=== PATIENT | female | born 1965 | race Caucasian/White ===

== ENCOUNTER 2017-04-02 11:36 | Emergency (ER) | payer OTHER ==
[2017-04-02] MEDS ORDERED: LISINOPRIL 10 MG TABLET PO ONE (11:54)
--- NOTE | 2017-04-02 11:54 | ER Document Report ---
ED Blood Pressure Problem - General Chief Complaint: Blood Pressure Problem Stated Complaint: BLOOD PRESSURE ISSUE Time Seen by Provider: 04/02/17 11:42 Mode of Arrival: Ambulatory Information source: Patient TRAVEL OUTSIDE OF THE [place] IN LAST 30 DAYS: No - HPI Patient complains to provider of: High blood pressure Onset: This morning Quality of pain: Achy Severity: Mild Pain Level: 2 Problem is: Chronic problem Associated symptoms: Headache Notes: Patient is a 52-year-old female with a history of hypertension who is noncompliant with her medications, presenting to the emergency room today complaining of mild headache, she was in a group therapy session this morning and was crying when another person there noted that her tear was red and it appeared as though she had blood coming from her left eye, she does report a burning sensation to the medial portion of her left eye but denies any injury, no other discharge, no blurry vision, no nausea or vomiting, she does report a history of headaches frequently - Related Data Allergies/Adverse Reactions: sulfamethoxazole [From Bactrim] Allergy (Intermediate, Verified 04/02/17 11:41) hives, white tounge, trimethoprim [From Bactrim] Allergy (Intermediate, Verified 04/02/17 11:41) hives, white tounge, bandaids Allergy (Mild, Uncoded 04/02/17 11:41) redness Past Medical History - General Information source: Patient - Social History Smoking Status: Never Smoker Chew tobacco use (# tins/day): No Frequency of alcohol use: None Drug Abuse: None Family History: Reviewed & Not Pertinent - Past Medical History Cardiac Medical History: Reports: Hx Hypertension Denies: Hx Coronary Artery Disease, Hx Heart Attack Pulmonary Medical History: Reports: Hx Asthma, Hx Bronchitis, Hx Pneumonia Denies: Hx COPD Neurological Medical History: Denies: Hx Cerebrovascular Accident, Hx Seizures Renal/ Medical History: Denies: Hx Peritoneal Dialysis Musculoskeltal Medical History: Reports Hx Arthritis Past Surgical History: Reports: Hx Cholecystectomy, Hx Hysterectomy, Hx Oral Surgery - wisdom teeth, Hx Tonsillectomy, Hx Tubal Ligation. Denies: Hx Pacemaker - Immunizations Hx Diphtheria, Pertussis, Tetanus Vaccination: Yes Review of Systems - Review of Systems Constitutional: No symptoms reported EENT: See HPI Cardiovascular: No symptoms reported Respiratory: No symptoms reported Gastrointestinal: No symptoms reported Genitourinary: No symptoms reported Female Genitourinary: No symptoms reported Musculoskeletal: No symptoms reported Skin: No symptoms reported Hematologic/Lymphatic: No symptoms reported Neurological/Psychological: Headaches -: Yes All other systems reviewed and negative Physical Exam - Vital signs Vitals: Temp Pulse Resp BP Pulse Ox 98.2 F 76 18 148/94 H 97 04/02/17 11:39 04/02/17 11:39 04/02/17 11:39 04/02/17 11:39 04/02/17 11:39 Interpretation: Normal - General General appearance: Appears well, Alert - HEENT Head: Normocephalic, Atraumatic Eyes: Normal Conjunctiva: Injected - Left medial conjunctival Pupils: PERRL - Respiratory Respiratory status: No respiratory distress Chest status: Nontender Breath sounds: Normal Chest palpation: Normal - Cardiovascular Rhythm: Regular Heart sounds: Normal auscultation Murmur: No - Abdominal Inspection: Normal Distension: No distension Bowel sounds: Normal Tenderness: Nontender Organomegaly: No organomegaly - Back Back: Normal, Nontender - Extremities General upper extremity: Normal inspection, Nontender, Normal color, Normal ROM , Normal temperature General lower extremity: Normal inspection, Nontender, Normal color, Normal ROM , Normal temperature, Normal weight bearing. No: Isabela's sign - Neurological Neuro grossly intact: Yes Cognition: Normal Orientation: AAOx4 Cecilia Coma Scale Eye Opening: Spontaneous Cecilia Coma Scale Verbal: Oriented Cecilia Coma Scale Motor: Obeys Commands [place] Coma Scale Total: 15 Speech: Normal Motor strength normal: LUE, RUE, LLE, RLE Sensory: Normal - Psychological Associated symptoms: Normal affect, Normal mood - Skin Skin Temperature: Warm Skin Moisture: Dry Skin Color: Normal Course - Re-evaluation Re-evalutation: 04/02/17 12:36 Imaging findings discussed with patient at bedside, I findings are consistent with likely conjunctivitis, no active bleeding no signs of injury, patient was started on antibiotic drops and advised to follow-up with a primary care provider or return if symptoms worsen, patient acknowledges understanding and agreement with this plan - Vital Signs Vital signs: Temp Pulse Resp BP Pulse Ox 98.2 F 76 18 148/94 H 97 04/02/17 11:39 04/02/17 11:39 04/02/17 11:39 04/02/17 11:39 04/02/17 11:39 - Diagnostic Test Radiology reviewed: Image reviewed, Reports reviewed Discharge - Discharge Clinical Impression: Headache Qualifiers: Headache type: unspecified Headache chronicity pattern: acute headache Intractability: not intractable Qualified Code(s): R51 - Headache Conjunctivitis Qualifiers: Conjunctivitis type: acute Acute conjunctivitis type: bacterial Laterality: left Qualified Code(s): H10.32 - Unspecified acute conjunctivitis, left eye Hypertension Qualifiers: Hypertension type: unspecified Qualified Code(s): I10 - Essential (primary) hypertension Condition: Stable Disposition: HOME, SELF-CARE Instructions: Conjunctivitis ([facility]), Headache ([facility]), High Blood Pressure, Requiring Treatment ([facility]) Additional Instructions: Take your blood pressure medication as prescribed. Follow up with your primary care provider in one to 2 days. Return to the emergency room immediately if symptoms worsen or any additional concerns. Prescriptions: Ofloxacin [Ocuflox] 5 ml OP QID #1 bottle
--- NOTE | 2017-04-02 12:16 | RADIOLOGY REPORT (SQ) ---
EXAM DESCRIPTION: CT HEAD WITHOUT COMPLETED DATE/TIME: 04/02/2017 12:08 pm REASON FOR STUDY: injury COMPARISON: 12/12/2009 TECHNIQUE: Axial images acquired through the brain without intravenous contrast. Images reviewed wi th bone, brain and subdural windows. Images stored on PACS. All CT scanners at this facility use dose modulation, iterative reconstruction, and/or weight based d osing when appropriate to reduce radiation dose to as low as reasonably achievable (ALARA). [facility]: Dose Right [facility]: CareDose [facility]: Dose Right [facility]: Teradose 4D [facility]: [employer] RADIATION DOSE: Up-to-date CT equipment and radiation dose reduction techniques were employed. CTDIv ol: 64.6 mGy. DLP: 1163 mGy-cm. mGy. LIMITATIONS: None. FINDINGS: VENTRICLES: Normal size and contour. CEREBRUM: No masses. No hemorrhage. No midline shift. No evidence for acute infarction. Normal gra y/white matter differentiation. No areas of low density in the white matter. CEREBELLUM: No masses. No hemorrhage. No alteration of density. No evidence for acute infarction. EXTRAAXIAL SPACES: No fluid collections. No masses. ORBITS AND GLOBE: No intra- or extraconal masses. Normal contour of globe without masses. CALVARIUM: No fracture. PARANASAL SINUSES: No fluid or mucosal thickening. SOFT TISSUES: No mass or hematoma. OTHER: No other significant finding. IMPRESSION: NORMAL BRAIN CT WITHOUT CONTRAST. COMMENT: Quality ID # [id number]: Final reports with documentation of one or more dose reduction techniques (e.g., Automated exposure control, adjustment of the mA and/or kV according to patient size, use of iterative reconstruction technique) TECHNICAL DOCUMENTATION: JOB ID: [id number] [email or web address]- All Rights Reserved
[2017-04-02 12:40] VITALS: BP 132/88
== END 2017-04-02 12:45 | disposition home or self-care (01) ==
LOC: ER 11:36
DX: H10.32 Unspecified acute conjunctivitis, left eye (principal); R51 Headache; I10 Essential (primary) hypertension; Z91.14 Patient's other noncompliance with medication regimen
CPT/HCPCS: 70450; 99284

== ENCOUNTER 2018-01-26 17:10 | Emergency (ER) | payer OTHER ==
[2018-01-26] MEDS ORDERED: DIPHENHYDRAMINE HCL 50 MG/ML VIAL IV ONE (17:24)
[2018-01-26] MEDS ORDERED: METOCLOPRAMIDE HCL INJ/PF 10 MG/2 ML SDV IV ONE (17:24)
[2018-01-26] MEDS ORDERED: NORMAL SALINE 1000 ML 1,000 ML IV ONE (17:24)
--- NOTE | 2018-01-26 17:26 | ER Document Report ---
ED Medical Screen (RME) - General Chief Complaint: Vomiting Stated Complaint: ABDOMINAL PAIN/VOMITING Time Seen by Provider: 01/26/18 17:20 Notes: Patient is a 53-year-old female, past medical history migraines, presents with a few hours of nausea and vomiting after eating fried fish for lunch. She was having her usual headache for the past 3 days, but this is improving. She denies abdominal pain, hematemesis, diarrhea, fevers, blurry vision or urinary symptoms. PE: Actively vomiting in RME. Abdomen soft and non-tender. No CVA tenderness. I have greeted and performed a rapid initial assessment of this patient. A comprehensive ED assessment and evaluation of the patient, analysis of test results and completion of the medical decision making process will be conducted by additional ED providers. TRAVEL OUTSIDE OF THE [place] IN LAST 30 DAYS: No - Related Data Allergies/Adverse Reactions: sulfamethoxazole [From Bactrim] Allergy (Intermediate, Verified 01/26/18 17:24) hives, white tounge, trimethoprim [From Bactrim] Allergy (Intermediate, Verified 01/26/18 17:24) hives, white tounge, bandaids Allergy (Mild, Uncoded 01/26/18 17:24) redness Past Medical History - Social History Chew tobacco use (# tins/day): No Frequency of alcohol use: None Drug Abuse: None - Past Medical History Cardiac Medical History: Reports: Hx Hypertension Denies: Hx Coronary Artery Disease, Hx Heart Attack Pulmonary Medical History: Reports: Hx Asthma, Hx Bronchitis, Hx Pneumonia Denies: Hx COPD Neurological Medical History: Denies: Hx Cerebrovascular Accident, Hx Seizures Renal/ Medical History: Denies: Hx Peritoneal Dialysis Musculoskeltal Medical History: Reports Hx Arthritis Past Surgical History: Reports: Hx Cholecystectomy, Hx Hysterectomy, Hx Oral Surgery - wisdom teeth, Hx Tonsillectomy, Hx Tubal Ligation. Denies: Hx Pacemaker - Immunizations Hx Diphtheria, Pertussis, Tetanus Vaccination: Yes Physical Exam - Vital signs Vitals: Temp Pulse Resp BP Pulse Ox 97.4 F 74 20 124/46 L 96 01/26/18 17:17 01/26/18 17:17 01/26/18 17:17 01/26/18 17:17 01/26/18 17:17 Course - Vital Signs Vital signs: Temp Pulse Resp BP Pulse Ox 97.4 F 74 20 124/46 L 96 01/26/18 17:17 01/26/18 17:17 01/26/18 17:17 01/26/18 17:17 01/26/18 17:17 Doctor's Discharge - Discharge Referrals: NAPOLEON HERNADEZ MD [Primary Care Provider] - Follow up as needed
[2018-01-26] MEDS ORDERED: LORAZEPAM 1 MG TABLET PO ONE (18:25)
[2018-01-26] MEDS ORDERED: PREDNISONE 20 MG TABLET PO ONE (18:25)
--- NOTE | 2018-01-26 18:26 | ER Document Report ---
ED General - General Chief Complaint: Vomiting Stated Complaint: ABDOMINAL PAIN/VOMITING Time Seen by Provider: 01/26/18 17:20 Mode of Arrival: Ambulatory Information source: Patient, Relative, [facility] Records Notes: 53-year-old female with hypertension, GERD, fibromyalgia, migraine headaches presents with complaint of headache, nausea, vomiting. Patient states that her headache started 3 days prior to arrival. She describes it as a throbbing pain located on the right side of her head in the region of the occiput. Patient does have a history of migraines and states this is similar although it is lasting longer than usual. It has not been relieved with her Excedrin. Patient also complaining of nausea and vomiting that started 2 hours prior to arrival. Patient states that she had lunch at the [employer] ([employer]) and shortly afterwards began vomiting. Patient states that she vomited over a dozen times. She denies any bilious or bloody emesis. She denies any abdominal pain, chest pain, diarrhea, dysuria, back pain. TRAVEL OUTSIDE OF THE [place] IN LAST 30 DAYS: No - HPI Onset: Just prior to arrival Onset/Duration: Sudden Quality of pain: Achy, Throbbing Severity: Mild Associated symptoms: Body/muscle aches, Headache, Nausea, Vomiting. denies: Chest pain, Diarrhea, Shortness of breath Exacerbated by: Denies Relieved by: Denies Similar symptoms previously: Yes Recently seen / treated by doctor: No - Related Data Allergies/Adverse Reactions: sulfamethoxazole [From Bactrim] Allergy (Intermediate, Verified 01/26/18 17:24) hives, white tounge, trimethoprim [From Bactrim] Allergy (Intermediate, Verified 01/26/18 17:24) hives, white tounge, bandaids Allergy (Mild, Uncoded 01/26/18 17:24) redness Past Medical History - General Information source: Patient - Social History Smoking Status: Never Smoker Chew tobacco use (# tins/day): No Frequency of alcohol use: None Drug Abuse: None Lives with: Spouse/Significant other Family History: Reviewed & Not Pertinent Patient has suicidal ideation: No Patient has homicidal ideation: No - Past Medical History Cardiac Medical History: Reports: Hx Hypertension Denies: Hx Coronary Artery Disease, Hx Heart Attack Pulmonary Medical History: Reports: Hx Asthma, Hx Bronchitis, Hx Pneumonia Denies: Hx COPD Neurological Medical History: Denies: Hx Cerebrovascular Accident, Hx Seizures Renal/ Medical History: Denies: Hx Peritoneal Dialysis Musculoskeltal Medical History: Reports Hx Arthritis Past Surgical History: Reports: Hx Cholecystectomy, Hx Hysterectomy, Hx Oral Surgery - wisdom teeth, Hx Tonsillectomy, Hx Tubal Ligation. Denies: Hx Pacemaker - Immunizations Hx Diphtheria, Pertussis, Tetanus Vaccination: Yes Review of Systems - Review of Systems Constitutional: Chills, Malaise. denies: Fever EENT: denies: Blurred vision Cardiovascular: denies: Chest pain Respiratory: denies: Short of breath Gastrointestinal: Nausea, Vomiting. denies: Abdominal pain, Diarrhea, Blood in vomit Genitourinary: denies: Dysuria, Flank pain Female Genitourinary: No symptoms reported Musculoskeletal: No symptoms reported Skin: No symptoms reported Hematologic/Lymphatic: No symptoms reported Neurological/Psychological: Headaches. denies: Weakness, Gait changes, Loss of power, Lost consciousness, Speech impairment, Numbness -: Yes All other systems reviewed and negative Physical Exam - Vital signs Vitals: Temp Pulse Resp BP Pulse Ox 97.4 F 74 20 124/46 L 96 01/26/18 17:17 01/26/18 17:17 01/26/18 17:17 01/26/18 17:17 01/26/18 17:17 Interpretation: No: Hypertensive, Febrile - Notes Notes: PHYSICAL EXAMINATION: GENERAL: Well-appearing, well-nourished and in no acute distress. HEAD: Atraumatic, normocephalic. EYES: Pupils equal round and reactive to light, extraocular movements intact, conjunctiva are normal. ENT: Nares patent, oropharynx clear without exudates. Moist mucous membranes. NECK: Normal range of motion, supple without lymphadenopathy LUNGS: Breath sounds clear to auscultation bilaterally and equal. No wheezes rales or rhonchi. HEART: Regular rate and rhythm without murmurs ABDOMEN: Soft, nontender, nondistended abdomen. No guarding, no rebound. No masses appreciated. Female : deferred Musculoskeletal: Normal range of motion, no pitting or edema. No cyanosis. NEUROLOGICAL: Cranial nerves grossly intact. Normal speech, normal gait. Normal sensory, motor exams PSYCH: Normal mood, normal affect. SKIN: Warm, Dry, normal turgor, no rashes or lesions noted. Course - Re-evaluation Re-evalutation: 01/26/18 20:09 53-year-old female with hypertension, GERD, fibromyalgia, migraine headaches presents with complaint of headache, nausea, vomiting. Patient states that her headache started 3 days prior to arrival. She describes it as a throbbing pain located on the right side of her head in the region of the occiput. Patient does have a history of migraines and states this is similar although it is lasting longer than usual. It has not been relieved with her Excedrin. Patient also complaining of nausea and vomiting that started 2 hours prior to arrival. Patient states that she had lunch at the [employer] ([employer]) and shortly afterwards began vomiting. Patient states that she vomited over a dozen times. Patient was seen by myself upon arrival. Vital signs were reviewed. Patient is afebrile, normotensive and not hypoxic. Patient does not appear toxic or dehydrated. They are in no acute distress. Previous medical records and nursing notes reviewed. Patient with a normal neurologic and physical exam. She did receive Reglan, Benadryl, IV fluids, Ativan and reports an improvement of her headache. She has not had vomiting in over 3 hours. She is sleeping on reevaluation. Patient provided the opportunity to ask questions, and express concerns. Discharge instructions discussed. Patient is agreeable with discharge home. Return indications explained and discussed with the patient who displays understanding. Patient encouraged to return to the emergency department immediately with any concerns. 01/26/18 20:11 01/26/18 20:11 01/26/18 20:12 - Vital Signs Vital signs: Temp Pulse Resp BP Pulse Ox 97.4 F 74 20 124/46 L 96 01/26/18 17:17 01/26/18 17:17 01/26/18 17:17 01/26/18 17:17 01/26/18 17:17 Discharge - Discharge Clinical Impression: Headache Qualifiers: Headache type: unspecified Headache chronicity pattern: unspecified pattern Intractability: not intractable Qualified Code(s): R51 - Headache Nausea & vomiting Qualifiers: Vomiting type: unspecified Vomiting Intractability: non-intractable Qualified Code(s): R11.2 - Nausea with vomiting, unspecified Condition: Good Disposition: HOME, SELF-CARE Instructions: Vomiting ([facility]), Headache ([facility]) Prescriptions: Famotidine [Pepcid 40 mg Tablet] 40 mg PO DAILY #10 tablet Ondansetron [Zofran Odt 4 mg Tablet] 1 - 2 tab PO Q4H PRN #15 tab.rapdis PRN Reason: For Nausea/Vomiting Referrals: NAPOLEON HERNADEZ MD [Primary Care Provider] - Follow up as needed
[2018-01-26 20:44] VITALS: BP 108/66
== END 2018-01-26 20:44 | disposition home or self-care (01) ==
LOC: ER 17:10
DX: R11.2 Nausea with vomiting, unspecified (principal); R51 Headache; M79.1 Myalgia; I10 Essential (primary) hypertension; K21.9 Gastro-esophageal reflux disease without esophagitis; Z88.3 Allergy status to other anti-infective agents; Z90.49 Acquired absence of other specified parts of digestive tract; Z90.710 Acquired absence of both cervix and uterus
CPT/HCPCS: 99284; 96361; 96374; 96375; J1200; J2765; J7512; J7030

== ENCOUNTER 2018-02-16 11:14 | Emergency (ER) | payer OTHER ==
[2018-02-16] MEDS ORDERED: NORMAL SALINE 1000 ML 1,000 ML IV ONE ×2 (11:51→15:16)
--- NOTE | 2018-02-16 11:54 | ER Document Report ---
ED General - General Stated Complaint: NAUSEA Time Seen by Provider: 02/16/18 11:39 TRAVEL OUTSIDE OF THE [place] IN LAST 30 DAYS: No - HPI Notes: 53-year-old female presents to the emergency department complaining of nausea vomiting dizziness. The patient has noticed she has been gaining weight. She has not taken losartan HCTZ in quite a while. Took one this morning thinking it would help decrease some of the fluid she is think she is retaining. At that point she began feeling a lot of indigestion, pale, very sweaty and very nauseous. Patient began vomiting and then has come here to the ER. It has noticed her blood pressure has been low. She denies any fever chills. Denies any chest pain or shortness of breath but feels very nauseous. Has an indigestion type feeling. Patient denies any abdominal pain. Denies extremity numbness tingling or weakness. - Related Data Allergies/Adverse Reactions: sulfamethoxazole [From Bactrim] Allergy (Intermediate, Verified 01/26/18 17:24) hives, white tounge, trimethoprim [From Bactrim] Allergy (Intermediate, Verified 01/26/18 17:24) hives, white tounge, bandaids Allergy (Mild, Uncoded 01/26/18 17:24) redness Past Medical History - Social History Smoking Status: Unknown if Ever Smoked Family History: Reviewed & Not Pertinent - Past Medical History Cardiac Medical History: Reports: Hx Hypertension Denies: Hx Coronary Artery Disease, Hx Heart Attack Pulmonary Medical History: Reports: Hx Asthma, Hx Bronchitis, Hx Pneumonia Denies: Hx COPD Neurological Medical History: Denies: Hx Cerebrovascular Accident, Hx Seizures Renal/ Medical History: Denies: Hx Peritoneal Dialysis Musculoskeletal Medical History: Reports Hx Arthritis Past Surgical History: Reports: Hx Cholecystectomy, Hx Hysterectomy, Hx Oral Surgery - wisdom teeth, Hx Tonsillectomy, Hx Tubal Ligation. Denies: Hx Pacemaker - Immunizations Hx Diphtheria, Pertussis, Tetanus Vaccination: Yes Review of Systems - Review of Systems Constitutional: Chills, Weight gain. denies: Fever Cardiovascular: Dizziness. denies: Chest pain, Dyspnea Gastrointestinal: Nausea, Vomiting. denies: Diarrhea Genitourinary: denies: Burning, Frequency, Flank pain, Hematuria Neurological/Psychological: denies: Lost consciousness, Headaches -: Yes All other systems reviewed and negative Physical Exam - Vital signs Vitals: Temp Pulse Resp BP Pulse Ox 98.3 F 100 26 H 92/45 L 90 L 02/16/18 11:26 02/16/18 11:26 02/16/18 11:02/16/18 11:02/16/18 11:26 - Notes Notes: GENERAL_APPEARANCE: well_nourished, alert, cooperative, no_acute_distress, no_ obvious_discomfort. VITALS: reviewed, see vital signs table. HEAD: no_swelling\tenderness on the head. EYES: PERRL, EOMI, conjunctiva_clear. NOSE: no_nasal_discharge. MOUTH: (-)decreased moisture. THROAT: no_tonsilar_inflammation, no_airway_obstruction. no_lymphadenopathy NECK: supple, no_neck_tenderness, (-)thyromegaly. BACK: no_back_tenderness. CHEST_WALL: no_chest_tenderness. LUNGS: no_wheezing, no_rales, no_rhonchi, (-)accessory muscle use, good air exchange bilateral. HEART: normal_rate, normal_rhythm, normal_S1, normal_S2, (-)S3, (-)S4, no_ murmur, no_rub. ABDOMEN: normal_BS, soft, no_abd_tenderness, (-)guarding, (-)rebound, no_ organomegaly, no_abd_masses. EXTREMITIES: strength 5/5 in all_extremities, good pulses in all_extremities, no_swelling\tenderness in the extremities, no_edema. SKIN: Pale diaphoretic no rashes MENTAL_STATUS: speech_clear, oriented_X_3, normal_affect, responds_ appropriately to questions. NEURO: Neg Motor or Sensory Deficits on exam, CN 2-12 intact, DTR 2+ symmetric x 4, No cerbellar signs Course - Re-evaluation Re-evalutation: 02/16/18 11:53 Patient arrives with nausea vomiting diaphoresis. His blood pressure is 90 we will give her some IV fluids. This may be from the blood pressure medicine that she took is unknown why she discontinued this initially and she has not taken it for months but then took it again this morning to try to get some water weight off. 02/16/18 15:59 Patient's blood pressure has come up with IV fluids and she was monitored for many hours. She is feeling much better. Initially she had what was thought to be low oxygen sats but after the patient was watched her sats did not drop. She denies any fever chills. I spoke with her about observation and myself in the hospital spoke with her is decided the patient is okay to go home but if she has any additional issues she is return to the ER immediately - Vital Signs Vital signs: Temp Pulse Resp BP Pulse Ox 98.3 F 100 25 H 99/70 L 94 02/16/18 11:26 02/16/18 11:26 02/16/18 15:41 02/16/18 15:41 02/16/18 15:41 - Laboratory Result Diagrams: 02/16/18 11:37 02/16/18 11:37 Laboratory results interpreted by me: 02/16/18 02/16/18 02/16/18 11:37 11:37 11:52 WBC 3.2 L RBC 6.30 H Hgb 18.7 H Hct 54.5 H RDW 14.3 H Monocytes % 0.4 L Absolute Monocytes 0.0 L Carbon Dioxide 20 L Est GFR (Non-Af Amer) 58 L Glucose 145 H POC Glucose 144 H AST 43 H Alkaline Phosphatase 142 H Discharge - Discharge Clinical Impression: Hypotension Qualifiers: Hypotension type: hypotension due to drug Qualified Code(s): I95.2 - Hypotension due to drugs Vomiting Qualifiers: Vomiting type: unspecified Vomiting Intractability: non-intractable Nausea presence: with nausea Qualified Code(s): R11.2 - Nausea with vomiting, unspecified Condition: Good Disposition: HOME, SELF-CARE Instructions: Intravenous (IV) Fluids ([facility]), Vomiting ([facility]), Orthostatic Hypotension ([facility]) Additional Instructions: Please drink plenty of fluids. Not take anymore that blood pressure medicine and follow-up with your doctor soon as possible if you have any other problems return to the ER immediately Referrals: NAPOLEON HERNADEZ MD [Primary Care Provider] - Follow up as needed
[2018-02-16 11:55] LABS: ABSOLUTE LYMPHOCYTES (AUTO) 0.7 10^3/uL (0.5-4.7); ABSOLUTE NEUT (AUTO) 2.4 10^3/uL (1.7-8.2); BASOPHILS % (AUTO) 0.4 % (0-2); EOSINOPHILS % (AUTO) 0.3 % (0-6); HEMATOCRIT 54.5 % (36.0-47.0); HEMOGLOBIN 18.7 g/dL (12.0-15.5); MEAN CORPUSCULAR HEMOGLOBIN 29.7 pg (27.0-33.4); MEAN CORPUSCULAR HGB CONC 34.4 g/dL (32.0-36.0); MEAN CORPUSCULAR VOLUME 87 fl (80-97); MONOCYTES % (AUTO) 0.4 % (3-13); PLATELET COUNT 212 10^3/uL (150-450); RED CELL DISTRIBUTION WIDTH 14.3 % (11.5-14.0); SEGMENTED NEUTROPHILS % (AUTO) 75.9 % (42-78); TOTAL CELLS COUNTED % (AUTO) 100 %; WHITE BLOOD COUNT 3.2 10^3/uL (4.0-10.5)
[2018-02-16 12:00] LABS: ALANINE AMINOTRANSFERASE 46 U/L (9-52); ALBUMIN 3.7 g/dL (3.5-5.0); ALKALINE PHOSPHATASE 142 U/L (38-126); ANION GAP 17 (5-19); ASPARTATE AMINO TRANSFERASE 43 U/L (14-36); BILIRUBIN,DIRECT 0.3 mg/dL (0.0-0.4); BILIRUBIN,TOTAL 0.6 mg/dL (0.2-1.3); BLOOD UREA NITROGEN 12 mg/dL (7-20); CALCIUM 9.2 mg/dL (8.4-10.2); CARBON DIOXIDE 20 mmol/L (22-30); CHLORIDE 106 mmol/L (98-107); GLUCOSE 145 mg/dL (75-110); POTASSIUM 3.7 mmol/L (3.6-5.0); SODIUM 142.5 mmol/L (137-145)
[2018-02-16] MEDS ORDERED: METOCLOPRAMIDE HCL ORAL SOLN 10 MG/10 ML UDCUP PO ONE (12:26)
[2018-02-16] MEDS ORDERED: LIDOCAINE 2% VISCOUS SOLN 20 ML UDCUP PO ONE (12:26)
[2018-02-16] MEDS ORDERED: MAG HYDROX/AL HYDROX/SIMETH SUSP 30 ML UDCUP PO ONE (12:26)
--- NOTE | 2018-02-16 15:26 | RADIOLOGY REPORT (SQ) ---
EXAM DESCRIPTION: CTA CHEST COMPLETED DATE/TIME: 02/16/2018 2:35 pm REASON FOR STUDY: abd / chest discomfort COMPARISON: None. TECHNIQUE: CT scan of the chest performed using helical scanning technique with dynamic intravenous contrast injection. Images reviewed with lung, soft tissue and bone windows. Reconstructed coronal and sagittal MPR images reviewed. Additional 3 dimensional post-processing performed to develop Maximal Intensity Projection images (MT P). All images stored on PACS. All CT scanners at this facility use dose modulation, iterative reconstruction, and/or weight based d osing when appropriate to reduce radiation dose to as low as reasonably achievable (ALARA). [facility]: Dose Right [facility]: CareDose [facility]: Dose Right [facility]: Teradose 4D [facility]: [employer] CONTRAST TYPE AND DOSE: contrast/concentration: Isovue 370.00 mg/ml; Total Contrast Delivered: 81.0 ml; Total Saline Delivered: 90.0 ml Contrast bolus optimized for the pulmonary arteries. Not diagnostic for the aorta. RENAL FUNCTION: BUN 12 creatinine 1 RADIATION DOSE: CT Rad equipment meets quality standard of care and radiation dose reduction techniq ues were employed. CTDIvol: 16.5 - 27.8 mGy. DLP: 3733 mGy-cm. . LIMITATIONS: None. FINDINGS: LUNGS AND PLEURA: Extensive ground-glass infiltrates are present especially in the upper l obes. No masses. No pleural effusion. AORTA AND GREAT VESSELS: No aneurysm. Contrast bolus not optimized for the aorta. HEART: No pericardial effusion. No significant coronary artery calcifications. PULMONARY ARTERIES: No emboli visualized in the main pulmonary arteries or the segmental branches. HILAR AND MEDIASTINAL STRUCTURES: Scattered nonspecific small lymph nodes. No mediastinal or hilar m ass. HARDWARE: None in the chest. UPPER ABDOMEN: See separate report of the CT of the abdomen. THYROID AND OTHER SOFT TISSUES: No masses. No adenopathy. BONES: No acute or significant finding. 3D MIPS: Confirm above findings. OTHER: No other significant finding. IMPRESSION: 1. There is no evidence of pulmonary emboli. 2. Ground-glass infiltrates. Chronic interstitial changes versus interstitial edema. Infectious an d inflammatory processes can result in this appearance. COMMENT: Quality ID # [id number]: Final reports with documentation of one or more dose reduction techniques (e.g., Automated exposure control, adjustment of the mA and/or kV according to patient size, use of iterative reconstruction technique) TECHNICAL DOCUMENTATION: JOB ID: [id number] [employer]- All Rights Reserved Reading location - IP/workstation name: [email or web address]
--- NOTE | 2018-02-16 15:32 | RADIOLOGY REPORT (SQ) ---
EXAM DESCRIPTION: CT ABD/PELVIS WITH IV ONLY COMPLETED DATE/TIME: 02/16/2018 2:35 pm REASON FOR STUDY: abd / chest discomfort COMPARISON: None. TECHNIQUE: CT scan of the abdomen and pelvis performed using helical scanning technique with dynamic intravenous contrast injection. No oral contrast. Images reviewed with lung, soft tissue, and bone windows. Reconstructed coronal and sagittal MPR images reviewed. Delayed images for evaluation of the urinary system also acquired. All images stored on PACS. All CT scanners at this facility use dose modulation, iterative reconstruction, and/or weight based d osing when appropriate to reduce radiation dose to as low as reasonably achievable (ALARA). [facility]: Dose Right [facility]: CareDose [facility]: Dose Right [facility]: Teradose 4D [facility]: [employer] CONTRAST TYPE AND DOSE: 81 mL Isovue 370- low osmolar. RENAL FUNCTION: BUN 12 creatinine 1 RADIATION DOSE: . LIMITATIONS: None. FINDINGS: LOWER CHEST: See separate report of the CT of the chest. LIVER: The liver is uniformly hypoattenuating. SPLEEN: Normal size. No focal lesions. PANCREAS: No masses. No significant calcifications. No adjacent inflammation or peripancreatic fluid collections. Pancreatic duct not dilated. GALLBLADDER: Surgically absent. ADRENAL GLANDS: No significant masses or asymmetry. RIGHT KIDNEY AND URETER: No solid masses. No significant calcifications. No hydronephrosis or hyd roureter. LEFT KIDNEY AND URETER: No solid masses. No significant calcifications. No hydronephrosis or hydr oureter. AORTA AND VESSELS: No aneurysm. No dissection. Renal arteries, SMA, celiac without stenosis. RETROPERITONEUM: No retroperitoneal adenopathy, hemorrhage or masses. BOWEL AND PERITONEAL CAVITY: No masses or inflammatory changes. No free fluid or peritoneal masses. APPENDIX: Normal. PELVIS: No mass. No free fluid. Normal bladder. ABDOMINAL WALL: Small umbilical hernia contains only fat. BONES: No significant or acute findings. OTHER: No other significant finding. IMPRESSION: Fatty infiltration of the liver. No acute abdominal or pelvic findings. TECHNICAL DOCUMENTATION: JOB ID: [id number] Quality ID # [id number]: Final reports with documentation of one or more dose reduction techniques (e.g., Au tomated exposure control, adjustment of the mA and/or kV according to patient size, use of iterative reconstruction technique) 2010 [employer]- All Rights Reserved Reading location - IP/workstation name: [email or web address]
--- NOTE | 2018-02-16 16:04 | ER Document Report ---
Doctor's Note Notes: 02/16/18 16:03 The patient's he has a mildly elevated but this was initially drawn was likely due to dehydration. Spoken with the patient myself and the hospitalist about this.
[2018-02-16 16:15] LABS: APPEARANCE,URINE CLOUDY; BILIRUBIN,URINE NEGATIVE (NEGATIVE); COLOR,URINE YELLOW; GLUCOSE, URINE 150 mg/dL (NEGATIVE); KETONES,URINE NEGATIVE (NEGATIVE); LEUKOCYTE ESTERASE,URINE NEGATIVE (NEGATIVE); NITRITE,URINE NEGATIVE (NEGATIVE); PROTEIN,URINE 30 mg/dL (NEGATIVE); URINE SPECIFIC GRAVITY 1.041; UROBILINOGEN,URINE NEGATIVE mg/dL (<2.0)
[2018-02-16 16:41] VITALS: BP 101/62
--- NOTE | 2018-02-16 21:21 | EKG REPORT ---
SEVERITY:- ABNORMAL ECG - SINUS RHYTHM PROLONGED QT INTERVAL : Confirmed by: Juan Anderson 16-Feb-2018 21:20:51
== END 2018-02-16 16:41 | disposition home or self-care (01) ==
LOC: ER 11:14
DX: R11.2 Nausea with vomiting, unspecified (principal); I95.2 Hypotension due to drugs; T50.905A Adverse effect of unspecified drugs, medicaments and biological substances, initial encounter; R61 Generalized hyperhidrosis; I10 Essential (primary) hypertension; R42 Dizziness and giddiness; R63.5 Abnormal weight gain; K30 Functional dyspepsia; J45.909 Unspecified asthma, uncomplicated; Z88.1 Allergy status to other antibiotic agents; Z88.8 Allergy status to other drugs, medicaments and biological substances
CPT/HCPCS: 93005; 99285; 36415; 82962; 82550; 83690; 85025; 80053; 81001; 84484; 83605; 71275; 74177; 93010; J3490

== ENCOUNTER 2018-03-15 14:04 | Inpatient (IN) | payer OTHER ==
--- NOTE | 2018-03-15 14:15 | ER Document Report ---
ED General - General Chief Complaint: Low Blood Pressure Stated Complaint: BLOOD PRESSURE ISSUE Time Seen by Provider: 03/15/18 14:14 Notes: 53-year-old female to the emergency department for evaluation of collapse. Patient was at work and she had sudden collapse. Was found from a hypotensive by EMS. IV was established. Fluids begun. Accu-Chek was normal. Patient was alert and responsive but lethargic. By report from patient as well as medical records she had a similar episode approximately 3 weeks ago after taking losartan. Patient took another losartan this morning. Is complaining of chest pain. TRAVEL OUTSIDE OF THE [place] IN LAST 30 DAYS: No - HPI Onset/Duration: Sudden Quality of pain: Achy Severity: Moderate Pain Level: 3 Associated symptoms: Chest pain Exacerbated by: Movement - Related Data Allergies/Adverse Reactions: sulfamethoxazole [From Bactrim] Allergy (Intermediate, Verified 01/26/18 17:24) hives, white tounge, trimethoprim [From Bactrim] Allergy (Intermediate, Verified 01/26/18 17:24) hives, white tounge, bandaids Allergy (Mild, Uncoded 01/26/18 17:24) redness Past Medical History - General Information source: Patient Cannot obtain history due to: Altered mental status - Social History Smoking Status: Smoker,Current Status Unk Frequency of alcohol use: None Drug Abuse: None Lives with: Spouse/Significant other Family History: Reviewed & Not Pertinent - Past Medical History Cardiac Medical History: Reports: Hx Hypertension Denies: Hx Coronary Artery Disease, Hx Heart Attack Pulmonary Medical History: Reports: Hx Asthma, Hx Bronchitis, Hx Pneumonia Denies: Hx COPD Neurological Medical History: Denies: Hx Cerebrovascular Accident, Hx Seizures Renal/ Medical History: Denies: Hx Peritoneal Dialysis Musculoskeletal Medical History: Reports Hx Arthritis Past Surgical History: Reports: Hx Cholecystectomy, Hx Hysterectomy, Hx Oral Surgery - wisdom teeth, Hx Tonsillectomy, Hx Tubal Ligation. Denies: Hx Pacemaker - Immunizations Hx Diphtheria, Pertussis, Tetanus Vaccination: Yes Review of Systems - Review of Systems -: Yes ROS unobtainable due to patient's medical condition - She is profoundly obtunded, systems unreliable Physical Exam - Vital signs Vitals: Resp Pulse Ox 18 81 L 03/15/18 14:08 03/15/18 14:08 Interpretation: Hypotensive, Tachycardic, Hypoxic, Tachypneic - Notes Notes: Ashen, pale, very ill-appearing - General General appearance: Lethargic In distress: Severe - HEENT Head: Normocephalic, Atraumatic Eyes: Normal Pupils: PERRL - Respiratory Respiratory status: No respiratory distress Chest status: Nontender Breath sounds: Normal Chest palpation: Normal - Cardiovascular Rhythm: Tachycardia Heart sounds: Normal auscultation Murmur: No - Abdominal Inspection: Normal Distension: No distension Bowel sounds: Normal Tenderness: Nontender Organomegaly: No organomegaly - Back Back: Normal, Nontender - Extremities General upper extremity: Normal inspection, Nontender, Normal color, Normal ROM , Normal temperature General lower extremity: Normal inspection, Nontender, Normal color, Normal ROM , Normal temperature. No: Isabela's sign - Neurological Neuro grossly intact: Yes Cognition: Normal, Confused Orientation: Disoriented to place, Disoriented to events Cecilia Coma Scale Eye Opening: Spontaneous [place] Coma Scale Verbal: Confused Cecilia Coma Scale Motor: Obeys Commands [place] Coma Scale Total: 14 Sensory: Normal - Skin Skin Temperature: Warm Skin Moisture: Dry Skin Color: Normal Course - Re-evaluation Re-evalutation: 03/15/18 18:49 Patient profoundly hypotensive. Immediate resuscitation measures performed. Patient received 2 large-bore IVs as well as multiple fluid boluses. Stat CT performed to rule out pulmonary embolism. Does not appear to have a pulmonary embolism but does have some strange appearing issues with her lung tissue. Could represent sarcoidosis or other pathology. Lactic acid was elevated. Patient covered with broad-spectrum antibiotics. Blood pressure began to elevate again. Stat cardiology consult ordered. Tour Actor at bedside. Recommended stat echo. Stat echo was performed and echo was unremarkable. Uncertain etiology at this time but definitely could be medication related. Patient was placed in the ICU at this time. 03/15/18 18:50 Laboratory 03/15/18 03/15/18 03/15/18 14:13 14:13 14:13 WBC 4.9 RBC 5.91 H Hgb 17.3 H Hct 51.7 H MCV 88 MCH 29.3 MCHC 33.5 RDW 14.2 H Plt Count 220 Total Counted 100 Seg Neutrophils % Not Reportable Seg Neuts % (Manual) 44 Band Neutrophils % 10 H Lymphocytes % Not Reportable Lymphocytes % (Manual) 42 Monocytes % Not Reportable Monocytes % (Manual) 1 L Eosinophils % Not Reportable Eosinophils % (Manual) 1 Basophils % Not Reportable Basophils % (Manual) 0 Metamyelocytes % 2 H Absolute Neutrophils Not Reportable Abs Neuts (Manual) 2.7 Absolute Lymphocytes Not Reportable Abs Lymphs (Manual) 2.1 Absolute Monocytes Not Reportable Abs Monocytes (Manual) 0.0 L Absolute Eosinophils Not Reportable Absolute Eos (Manual) 0.0 Absolute Basophils Not Reportable Abs Basophils (Manual) 0.0 Platelet Comment ADEQUATE Anisocytosis SLIGHT Carbonic Acid HCO3/H2CO3 Ratio ABG pH ABG pCO2 ABG pO2 ABG HCO3 ABG Total CO2 ABG O2 Saturation ABG Base Excess FiO2 Sodium 141.2 Potassium 3.3 L Chloride 102 Carbon Dioxide 23 Anion Gap 16 BUN 12 Creatinine 0.90 Est GFR ( Amer) > 60 Est GFR (Non-Af Amer) > 60 Glucose 129 H Serum Osmolality Lactic Acid 5.1 H Calcium 9.1 Total Bilirubin 0.5 Direct Bilirubin 0.3 Neonat Total Bilirubin Not Reportable Neonat Direct Bilirubin Not Reportable Neonat Indirect Bili Not Reportable AST 50 H ALT 46 Alkaline Phosphatase 146 H Creatine Kinase 72 CK-MB (CK-2) Troponin I Total Protein 6.7 Albumin 3.5 TSH Free T4 Random Cortisol 25.30 Urine Color Urine Appearance Urine pH Ur Specific West Urine Protein Urine Glucose (UA) Urine Ketones Urine Blood Urine Nitrite Urine Bilirubin Urine Urobilinogen Ur Leukocyte Esterase Urine WBC (Auto) Urine RBC (Auto) Squamous Epi Cells Auto Urine Mucus (Auto) Urine Osmolality Urine Ascorbic Acid Urine Opiates Screen Urine Methadone Screen Ur Barbiturates Screen Ur Phencyclidine Scrn Ur Amphetamines Screen U Benzodiazepines Scrn Urine Cocaine Screen U Marijuana (THC) Screen 03/15/18 03/15/18 03/15/18 14:13 14:13 14:13 WBC RBC Hgb Hct MCV MCH MCHC RDW Plt Count Total Counted Seg Neutrophils % Seg Neuts % (Manual) Band Neutrophils % Lymphocytes % Lymphocytes % (Manual) Monocytes % Monocytes % (Manual) Eosinophils % Eosinophils % (Manual) Basophils % Basophils % (Manual) Metamyelocytes % Absolute Neutrophils Abs Neuts (Manual) Absolute Lymphocytes Abs Lymphs (Manual) Absolute Monocytes Abs Monocytes (Manual) Absolute Eosinophils Absolute Eos (Manual) Absolute Basophils Abs Basophils (Manual) Platelet Comment Anisocytosis Carbonic Acid HCO3/H2CO3 Ratio ABG pH ABG pCO2 ABG pO2 ABG HCO3 ABG Total CO2 ABG O2 Saturation ABG Base Excess FiO2 Sodium Potassium Chloride Carbon Dioxide Anion Gap BUN Creatinine Est GFR ( Amer) Est GFR (Non-Af Amer) Glucose Serum Osmolality 291 Lactic Acid Calcium Total Bilirubin Direct Bilirubin Neonat Total Bilirubin Neonat Direct Bilirubin Neonat Indirect Bili AST ALT Alkaline Phosphatase Creatine Kinase CK-MB (CK-2) 0.74 Troponin I < 0.012 Total Protein Albumin TSH 2.93 Free T4 1.16 Random Cortisol Urine Color Urine Appearance Urine pH Ur Specific West Urine Protein Urine Glucose (UA) Urine Ketones Urine Blood Urine Nitrite Urine Bilirubin Urine Urobilinogen Ur Leukocyte Esterase Urine WBC (Auto) Urine RBC (Auto) Squamous Epi Cells Auto Urine Mucus (Auto) Urine Osmolality Urine Ascorbic Acid Urine Opiates Screen Urine Methadone Screen Ur Barbiturates Screen Ur Phencyclidine Scrn Ur Amphetamines Screen U Benzodiazepines Scrn Urine Cocaine Screen U Marijuana (THC) Screen 03/15/18 03/15/18 03/15/18 14:13 14:13 14:13 WBC RBC Hgb Hct MCV MCH MCHC RDW Plt Count Total Counted Seg Neutrophils % Seg Neuts % (Manual) Band Neutrophils % Lymphocytes % Lymphocytes % (Manual) Monocytes % Monocytes % (Manual) Eosinophils % Eosinophils % (Manual) Basophils % Basophils % (Manual) Metamyelocytes % Absolute Neutrophils Abs Neuts (Manual) Absolute Lymphocytes Abs Lymphs (Manual) Absolute Monocytes Abs Monocytes (Manual) Absolute Eosinophils Absolute Eos (Manual) Absolute Basophils Abs Basophils (Manual) Platelet Comment Anisocytosis Carbonic Acid HCO3/H2CO3 Ratio ABG pH ABG pCO2 ABG pO2 ABG HCO3 ABG Total CO2 ABG O2 Saturation ABG Base Excess FiO2 Sodium Potassium Chloride Carbon Dioxide Anion Gap BUN Creatinine Est GFR ( Amer) Est GFR (Non-Af Amer) Glucose Serum Osmolality Lactic Acid Calcium Total Bilirubin Direct Bilirubin Neonat Total Bilirubin Neonat Direct Bilirubin Neonat Indirect Bili AST ALT Alkaline Phosphatase Creatine Kinase CK-MB (CK-2) Troponin I Total Protein Albumin TSH Free T4 Random Cortisol Urine Color YELLOW Urine Appearance CLEAR Urine pH 5.0 Ur Specific West 1.021 Urine Protein NEGATIVE Urine Glucose (UA) >=500 H Urine Ketones NEGATIVE Urine Blood NEGATIVE Urine Nitrite NEGATIVE Urine Bilirubin NEGATIVE Urine Urobilinogen NEGATIVE Ur Leukocyte Esterase NEGATIVE Urine WBC (Auto) 0 Urine RBC (Auto) 2 Squamous Epi Cells Auto 2 Urine Mucus (Auto) RARE Urine Osmolality 761 Urine Ascorbic Acid NEGATIVE Urine Opiates Screen NEGATIVE Urine Methadone Screen NEGATIVE Ur Barbiturates Screen NEGATIVE Ur Phencyclidine Scrn NEGATIVE Ur Amphetamines Screen NEGATIVE U Benzodiazepines Scrn NEGATIVE Urine Cocaine Screen NEGATIVE U Marijuana (THC) Screen NEGATIVE 03/15/18 14:24 WBC RBC Hgb Hct MCV MCH MCHC RDW Plt Count Total Counted Seg Neutrophils % Seg Neuts % (Manual) Band Neutrophils % Lymphocytes % Lymphocytes % (Manual) Monocytes % Monocytes % (Manual) Eosinophils % Eosinophils % (Manual) Basophils % Basophils % (Manual) Metamyelocytes % Absolute Neutrophils Abs Neuts (Manual) Absolute Lymphocytes Abs Lymphs (Manual) Absolute Monocytes Abs Monocytes (Manual) Absolute Eosinophils Absolute Eos (Manual) Absolute Basophils Abs Basophils (Manual) Platelet Comment Anisocytosis Carbonic Acid 1.03 L HCO3/H2CO3 Ratio 16:1 ABG pH 7.33 L ABG pCO2 34.1 L ABG pO2 53.2 L ABG HCO3 17.4 L ABG Total CO2 18.5 L ABG O2 Saturation 85.5 L ABG Base Excess -7.4 FiO2 3L Sodium Potassium Chloride Carbon Dioxide Anion Gap BUN Creatinine Est GFR ( Amer) Est GFR (Non-Af Amer) Glucose Serum Osmolality Lactic Acid Calcium Total Bilirubin Direct Bilirubin Neonat Total Bilirubin Neonat Direct Bilirubin Neonat Indirect Bili AST ALT Alkaline Phosphatase Creatine Kinase CK-MB (CK-2) Troponin I Total Protein Albumin TSH Free T4 Random Cortisol Urine Color Urine Appearance Urine pH Ur Specific West Urine Protein Urine Glucose (UA) Urine Ketones Urine Blood Urine Nitrite Urine Bilirubin Urine Urobilinogen Ur Leukocyte Esterase Urine WBC (Auto) Urine RBC (Auto) Squamous Epi Cells Auto Urine Mucus (Auto) Urine Osmolality Urine Ascorbic Acid Urine Opiates Screen Urine Methadone Screen Ur Barbiturates Screen Ur Phencyclidine Scrn Ur Amphetamines Screen U Benzodiazepines Scrn Urine Cocaine Screen U Marijuana (THC) Screen Chest/Abdomen CTA 03/15/18 14:16 IMPRESSION: No PE. Primarily interstitial pattern with coalescing nodules and diffuse distribution. Less striking ground-glass attenuation compared to the prior. Differential is broad and includes atypical infection, sarcoid, hypersensitivity pneumonitis, amyloidosis, among others. Consider bronchoscopy for tissue sampling. Head CT 03/15/18 14:17 IMPRESSION: NORMAL BRAIN CT WITHOUT CONTRAST. EVIDENCE OF ACUTE STROKE: NO. - Vital Signs Vital signs: Temp Pulse Resp BP Pulse Ox 34 H 105/44 L 97 03/15/18 17:33 03/15/18 17:33 03/15/18 17:33 - Laboratory Result Diagrams: 03/15/18 14:13 03/15/18 14:13 Laboratory results interpreted by me: 03/15/18 03/15/18 03/15/18 14:13 14:13 14:13 RBC 5.91 H Hgb 17.3 H Hct 51.7 H RDW 14.2 H Band Neutrophils % 10 H Monocytes % (Manual) 1 L Metamyelocytes % 2 H Abs Monocytes (Manual) 0.0 L Carbonic Acid ABG pH ABG pCO2 ABG pO2 ABG HCO3 ABG Total CO2 ABG O2 Saturation Potassium 3.3 L Glucose 129 H Lactic Acid 5.1 H AST 50 H Alkaline Phosphatase 146 H Urine Glucose (UA) 03/15/18 03/15/18 14:13 14:24 RBC Hgb Hct RDW Band Neutrophils % Monocytes % (Manual) Metamyelocytes % Abs Monocytes (Manual) Carbonic Acid 1.03 L ABG pH 7.33 L ABG pCO2 34.1 L ABG pO2 53.2 L ABG HCO3 17.4 L ABG Total CO2 18.5 L ABG O2 Saturation 85.5 L Potassium Glucose Lactic Acid AST Alkaline Phosphatase Urine Glucose (UA) >=500 H - EKG Interpretation by Me EKG shows normal: Sinus rhythm, [place], QRS Complexes, ST-T Waves. abnormal: Intervals - Patient with a prolonged QTC of 513. QRS complex 98. Patient has signs of some right ventricular hypertrophy with right atrial enlargement. Relatively unchanged from prior EKG. Heart rate is 83 Critical Care Note - Critical Care Note Total time excluding time spent on procedures (mins): 75 Comments: Tachycardia, hypotension, altered mental status, consultation with specialists Discharge - Discharge Clinical Impression: Bandemia, SIRS (systemic inflammatory response syndrome) Hypotension Qualifiers: Hypotension type: unspecified hypotension type Qualified Code(s): I95.9 - Hypotension, unspecified Condition: Fair Disposition: ADMITTED INPATIENT Admitting Provider: [facility] Admitted: ICU
[2018-03-15 14:46] LABS: HEMATOCRIT 51.7 % (36.0-47.0); HEMOGLOBIN 17.3 g/dL (12.0-15.5); MEAN CORPUSCULAR HEMOGLOBIN 29.3 pg (27.0-33.4); MEAN CORPUSCULAR HGB CONC 33.5 g/dL (32.0-36.0); MEAN CORPUSCULAR VOLUME 88 fl (80-97); PLATELET COUNT 220 10^3/uL (150-450); RED BLOOD COUNT 5.91 10^6/uL (3.72-5.28); RED CELL DISTRIBUTION WIDTH 14.2 % (11.5-14.0); WHITE BLOOD COUNT 4.9 10^3/uL (4.0-10.5)
[2018-03-15 14:48] LABS: ARTERIAL BLOOD BASE EXCESS -7.4 mmol/L; ARTERIAL BLOOD H2CO3 1.03 mmol/L (1.05-1.35); ARTERIAL BLOOD HCO3 17.4 mmol/L (20-26); ARTERIAL BLOOD O2 SATURATION 85.5 % (94-98); ARTERIAL BLOOD PCO2 34.1 mmHg (35-45); ARTERIAL BLOOD PH 7.33 (7.35-7.45); ARTERIAL BLOOD PO2 53.2 mmHg (80-100); ARTERIAL BLOOD TOTAL CO2 18.5 mmol/L (21-25)
[2018-03-15 14:49] LABS: APPEARANCE,URINE CLEAR; BILIRUBIN,URINE NEGATIVE (NEGATIVE); COLOR,URINE YELLOW; GLUCOSE, URINE >=500 mg/dL (NEGATIVE); KETONES,URINE NEGATIVE (NEGATIVE); LEUKOCYTE ESTERASE,URINE NEGATIVE (NEGATIVE); NITRITE,URINE NEGATIVE (NEGATIVE); PROTEIN,URINE NEGATIVE (NEGATIVE); URINE SPECIFIC GRAVITY 1.021; UROBILINOGEN,URINE NEGATIVE mg/dL (<2.0)
[2018-03-15 14:56] LABS: ARTERIAL BLOOD FIO2 3L
[2018-03-15 15:05] LABS: ALANINE AMINOTRANSFERASE 46 U/L (9-52); ALBUMIN 3.5 g/dL (3.5-5.0); ALKALINE PHOSPHATASE 146 U/L (38-126); ANION GAP 16 (5-19); ASPARTATE AMINO TRANSFERASE 50 U/L (14-36); BILIRUBIN,DIRECT 0.3 mg/dL (0.0-0.4); BILIRUBIN,TOTAL 0.5 mg/dL (0.2-1.3); BLOOD UREA NITROGEN 12 mg/dL (7-20); CALCIUM 9.1 mg/dL (8.4-10.2); CARBON DIOXIDE 23 mmol/L (22-30); CHLORIDE 102 mmol/L (98-107); CREATINE KINASE 72 U/L (30-135); GLUCOSE 129 mg/dL (75-110); POTASSIUM 3.3 mmol/L (3.6-5.0); SODIUM 141.2 mmol/L (137-145); TOTAL PROTEIN 6.7 g/dL (6.3-8.2)
--- NOTE | 2018-03-15 15:10 | RADIOLOGY REPORT (SQ) ---
EXAM DESCRIPTION: CT HEAD WITHOUT COMPLETED DATE/TIME: 03/15/2018 2:52 pm REASON FOR STUDY: altered, collasper COMPARISON: None. TECHNIQUE: Axial images acquired through the brain without intravenous contrast. Images reviewed wi th bone, brain and subdural windows. Additional sagittal and coronal reconstructions were generated. Images stored on PACS. All CT scanners at this facility use dose modulation, iterative reconstruction, and/or weight based d osing when appropriate to reduce radiation dose to as low as reasonably achievable (ALARA). [facility]: Dose Right [facility]: CareDose [facility]: Dose Right [facility]: Teradose 4D [facility]: [employer] RADIATION DOSE: CT Rad equipment meets quality standard of care and radiation dose reduction techniq ues were employed. CTDIvol: 53.2 mGy. DLP: 1070 mGy-cm. mGy. LIMITATIONS: None. FINDINGS: VENTRICLES: Normal size and contour. CEREBRUM: No masses. No hemorrhage. No midline shift. No evidence for acute infarction. Normal gra y/white matter differentiation. No areas of low density in the white matter. CEREBELLUM: No masses. No hemorrhage. No alteration of density. No evidence for acute infarction. EXTRAAXIAL SPACES: No fluid collections. No masses. ORBITS AND GLOBE: No intra- or extraconal masses. Normal contour of globe without masses. CALVARIUM: No fracture. PARANASAL SINUSES: No fluid or mucosal thickening. SOFT TISSUES: No mass or hematoma. OTHER: No other significant finding. IMPRESSION: NORMAL BRAIN CT WITHOUT CONTRAST. EVIDENCE OF ACUTE STROKE: NO. COMMENT: Quality ID # [id number]: Final reports with documentation of one or more dose reduction techniques (e.g., Automated exposure control, adjustment of the mA and/or kV according to patient size, use of iterative reconstruction technique) TECHNICAL DOCUMENTATION: JOB ID: [id number] [employer]- All Rights Reserved Reading location - IP/workstation name: [email or web address]
[2018-03-15 15:14] LABS: URINE AMPHETAMINES SCREEN NEGATIVE; URINE BARBITURATES SCREEN NEGATIVE; URINE BENZODIAZEPINES SCREEN NEGATIVE; URINE COCAINE SCREEN NEGATIVE; URINE MARIJUANA (THC) SCREEN NEGATIVE; URINE METHADONE SCREEN NEGATIVE; URINE PHENCYCLIDINE SCREEN NEGATIVE
[2018-03-15 15:19] LABS: ABSOLUTE LYMPHOCYTES# (MANUAL) 2.1 10^3/uL (0.5-4.7); ABSOLUTE NEUTROPHILS# (MANUAL) 2.7 10^3/uL (1.7-8.2); BAND NEUTROPHILS % (MANUAL) 10 % (3-5); BASOPHILS % (MANUAL) 0 % (0-2); EOSINOPHILS % (MANUAL) 1 % (0-6); LYMPHOCYTES % (MANUAL) 42 % (13-45); METAMYELOCYTES % (MANUAL) 2 % (0); MONOCYTES % (MANUAL) 1 % (3-13); SEGMENTED NEUTROPHILS % (MAN) 44 % (42-78); TOTAL CELLS COUNTED 100
[2018-03-15 15:20] LABS: ANISOCYTOSIS SLIGHT; PLATELET COMMENT ADEQUATE
--- NOTE | 2018-03-15 15:26 | RADIOLOGY REPORT (SQ) ---
EXAM DESCRIPTION: CTA CHEST COMPLETED DATE/TIME: 03/15/2018 2:52 pm REASON FOR STUDY: sudden collaspe, hypotension COMPARISON: 02/16/2018 TECHNIQUE: CT scan of the chest performed using helical scanning technique with dynamic intravenous contrast injection. Images reviewed with lung, soft tissue and bone windows. Reconstructed coronal and sagittal MPR images reviewed. Additional 3 dimensional post-processing performed to develop Maximal Intensity Projection images (NC P). All images stored on PACS. All CT scanners at this facility use dose modulation, iterative reconstruction, and/or weight based d osing when appropriate to reduce radiation dose to as low as reasonably achievable (ALARA). [facility]: Dose Right [facility]: CareDose [facility]: Dose Right [facility]: Teradose 4D [facility]: [employer] CONTRAST TYPE AND DOSE: contrast/concentration: Isovue 350.00 mg/ml; Total Contrast Delivered: 81.0 ml; Total Saline Delivered: 90.0 ml Contrast bolus optimized for the pulmonary arteries. Not diagnostic for the aorta. RENAL FUNCTION: GFR > 60. RADIATION DOSE: CT Rad equipment meets quality standard of care and radiation dose reduction techniq ues were employed. CTDIvol: 29.8 - 33.1 mGy. DLP: 1110 mGy-cm. . LIMITATIONS: None. FINDINGS: LUNGS AND PLEURA: Diffuse ground-glass attenuation. Diffuse coalescing nodules measuring up to about 8 mm symmetric throughout upper and lower lungs. Diffuse interlobular septal thickening. No bronchiectasis. No cavitation. No effusions. AORTA AND GREAT VESSELS: No aneurysm. Contrast bolus not optimized for the aorta. HEART: No pericardial effusion. No significant coronary artery calcifications. PULMONARY ARTERIES: No emboli visualized in the main pulmonary arteries or the segmental branches. HILAR AND MEDIASTINAL STRUCTURES: No identified masses or abnormal nodes. HARDWARE: None in the chest. UPPER ABDOMEN: No significant findings. Limited exam. THYROID AND OTHER SOFT TISSUES: No masses. No adenopathy. BONES: No acute or significant finding. 3D MIPS: Confirm above findings. OTHER: No other significant finding. IMPRESSION: No PE. Primarily interstitial pattern with coalescing nodules and diffuse distribution. Less striking ground-glass attenuation compared to the prior. Differential is broad and includes a typical infection, sarcoid, hypersensitivity pneumonitis, amyloidosis, among others. Consider [facility] hoscopy for tissue sampling. COMMENT: Quality ID # [id number]: Final reports with documentation of one or more dose reduction techniques (e.g., Automated exposure control, adjustment of the mA and/or kV according to patient size, use of iterative reconstruction technique) TECHNICAL DOCUMENTATION: JOB ID: [id number] [employer]- All Rights Reserved Reading location - IP/workstation name: [email or web address]
[2018-03-15] MEDS ORDERED: ASPIRIN 300 MG SUPP, RECTAL PR ONE (15:27)
[2018-03-15] MEDS ORDERED: PIPERACILLIN/TAZOBACTAM 4.5 GM VIAL IV ONE (15:28)
[2018-03-15 15:32] LABS: CREATINE KINASE MB 0.74 ng/mL (<4.55)
[2018-03-15 15:33] LABS: TROPONIN I < 0.012 ng/mL
[2018-03-15 15:39] LABS: FREE T4 (FREE THYROXINE) 1.16 ng/dL (0.78-2.19)
[2018-03-15 15:53] LABS: THYROID STIMULATING HORMONE 2.93 uIU/mL (0.47-4.68)
[2018-03-15] MEDS ORDERED: ONDANSETRON HCL INJ/PF 4 MG/2 ML SDV IV ONE (16:10)
[2018-03-15] MEDS ORDERED: ALBUTEROL SULFATE 0.083% NEB 2.5 MG/3 ML AMPUL NEB PRN (16:15)
[2018-03-15] MEDS: RINGERS SOLUTION,LACTATED 1,000 ML IV PRN ×2 (16:40→18:52)
--- NOTE | 2018-03-15 18:18 | XCELERA REPORT ---
[address] [address] Transthoracic Echocardiogram Report Name: SUAD CROOK Age: 53 yrs Gender: Female : 1965 Patient Status: Inpatient Patient Location: [place] [address]^A Study Date: 03/15/2018 03:34 PM Height: 67 in Weight: 225 lb BSA: 2.1 m2 Procedure: A complete two-dimensional transthoracic echocardiogram was performed (2D, M-mode, spectral and color flow Doppler). The study was technically limited with all images being suboptimal in quality. Reason For Study: cardiogenic shock, collaspe Ordering Physician: CHRISTOPHER WHITAKER Performed By: Robert Posadas Interpretation Summary The study was technically limited with all images being suboptimal in quality. The left ventricular ejection fraction is preserved. Consider additional methods to assess LVEF such as MUGA scan, CTA heart, cardiac MRI, MARLYS, etc. if clinically indicated. LV diastolic function could not be adequately assessed. Regional wall motion abnormalities cannot be excluded due to limited visualization. The right ventricle is grossly normal size. The right ventricular systolic function is normal. The right atrium is normal. The left atrial size is normal. There is a trace amount of mitral regurgitation There is no mitral valve stenosis. There is no aortic valve stenosis No aortic regurgitation is present. There is a trace or physiologic amount of tricuspid regurgitation Tricuspid regurgitation jet envelope not well defined to measure RV systolic pressure accurately. The aortic root is not well visualized but is probably normal size. The inferior vena cava was not visualized There is no pericardial effusion. MMode/2D Measurements & Calculations RVDd: 2.7 cm LVIDd: 3.9 cm FS: 39.8 % Ao root diam: 2.6 cm IVSd: 0.93 cm LVIDs: 2.4 cm EDV(Teich): 67.9 ml Ao root area: 5.2 cm2 LVPWd: 0.85 cm ESV(Teich): 19.7 ml LA dimension: 2.7 cm EF(Teich): 71.0 % Doppler Measurements & Calculations MV E max shirlene: MV P1/2t max shirlene: Ao V2 max: LV V1 max P.7 cm/sec 86.3 cm/sec 130.3 cm/sec 4.6 mmHg MV A max shirlene: MV P1/2t: 68.5 msec Ao max P.8 mmHgLV V1 max: 77.0 cm/sec MVA(P1/2t): 3.2 cm2 106.9 cm/sec MV E/A: 0.80 MV dec slope: 369.1 cm/sec2 MV dec time: 0.26 sec PA V2 max: TR max shirlene: MV P1/2t-pr_phl: 106.4 cm/sec 223.2 cm/sec 68.5 msec PA max P.5 mmHgTR max P.9 mmHg Left Ventricle The left ventricle is grossly normal size. There is borderline concentric left ventricular hypertrophy. The left ventricular ejection fraction is preserved. Consider additional methods to assess LVEF such as MUGA scan, CTA heart, cardiac MRI, MARLYS, etc. if clinically indicated. LV diastolic function could not be adequately assessed. Regional wall motion abnormalities cannot be excluded due to limited visualization. Right Ventricle The right ventricle is grossly normal size. There is normal right ventricular wall thickness. The right ventricular systolic function is normal. Atria The right atrium is normal. The left atrial size is normal. Interarterial septum not well visualized and not well dopplered. Cannot comment on ASD/PFO presence. Mitral Valve The mitral valve is grossly normal. There is no mitral valve stenosis. There is a trace amount of mitral regurgitation. Aortic Valve The aortic valve is not well visualized secondary to technical limitations. The aortic valve opens well. There is no aortic valve stenosis. No aortic regurgitation is present. Tricuspid Valve The tricuspid valve is not well visualized secondary to technical limitations. There is no tricuspid stenosis. There is a trace or physiologic amount of tricuspid regurgitation. Tricuspid regurgitation jet envelope not well defined to measure RV systolic pressure accurately. Pulmonic Valve The pulmonic valve is not well visualized. Great Vessels The aortic root is not well visualized but is probably normal size. The inferior vena cava was not visualized. Effusions There is no pericardial effusion. : CHRISTOPHER WHITAKER > Juan Anderson
[2018-03-15] MEDS ORDERED: AZITHROMYCIN 250 MG TABLET PO ONE (18:38)
[2018-03-15] MEDS: IPRATROPIUM/ALBUTEROL 0.5-2.5 MG/3 ML AMPUL NEB SCH ×3 (18:49→23:51)
[2018-03-15] MEDS ORDERED: CEFTRIAXONE 1 GM/D5W RTU 1 GM/50 ML RTUPB IV SCH (19:00)
--- NOTE | 2018-03-15 19:00 | RADIOLOGY REPORT (SQ) ---
EXAM DESCRIPTION: U/S RETROPERITON (RENAL/AORTA) COMPLETED DATE/TIME: 03/15/2018 6:53 pm REASON FOR STUDY: hypotension, altered COMPARISON: None. TECHNIQUE: Dynamic and static grayscale images acquired of the kidneys and bladder and recorded on P ACS. Additional selected color Doppler and spectral images recorded. LIMITATIONS: None. FINDINGS: RIGHT KIDNEY: Normal size. Normal echogenicity. No solid or suspicious masses. No hydronep hrosis. No calcifications. LEFT KIDNEY: Normal size. Normal echogenicity. No solid or suspicious masses. No hydronephrosis. No calcifications. BLADDER: No masses. OTHER FINDINGS: No other significant finding. IMPRESSION: NORMAL RENAL AND BLADDER ULTRASOUND. TECHNICAL DOCUMENTATION: JOB ID: [id number] [employer]- All Rights Reserved Reading location - IP/workstation name: [email or web address]
[2018-03-15] MEDS ORDERED: MAG HYDROX/AL HYDROX/SIMETH SUSP 30 ML UDCUP PO PRN (19:18)
--- NOTE | 2018-03-15 19:21 | PDOC H&P ---
History of Present Illness Admission Date/PCP: 03/15/18 16:02 NAPOLEON HERNADEZ MD Patient complains of: Cough, shortness of breath, collapsed History of Present Illness: SUAD CROOK is a 53 year old female who presents to the emergency room today after she collapsed at work and was hypotensive when she was found by the EMS. Patient apparently was complaining of feeling cold along with dry cough and shortness of breath started today along with vomiting nausea and diarrhea. She did not eat anything today and took her blood pressure medications as well. Patient was severely hypotensive when she came to the emergency room and she was resuscitated with IV fluids and currently her blood pressure is is appropriate. Her CT scan was positive for diffuse bilateral infiltrates. 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 Past Medical History Cardiac Medical History: Reports: Hypertension Denies: Coronary Artery Disease, Myocardial Infarction Pulmonary Medical History: Reports: Asthma, Bronchitis, Pneumonia Denies: Chronic Obstructive Pulmonary Disease (COPD) Neurological Medical History: Denies: Seizures Musculoskeltal Medical History: Reports: Arthritis Hematology: Denies: Anemia Past Surgical History Past Surgical History: Reports: Cholecystectomy, Hysterectomy, Tonsillectomy, Tubal Ligation Denies: Pacemaker Social History Smoking Status: Unknown if Ever Smoked Family History Family History: Other - Sarcoidosis Parental Family History Reviewed: Yes Children Family History Reviewed: Yes Sibling(s) Family History Reviewed.: Yes Medication/Allergy Home Medications: Doxycycline Hyclate [Vibramycin 100 mg Tablet] 100 mg PO DAILY 03/15/18 Duloxetine HCl [Cymbalta] 60 mg PO DAILY 03/15/18 Losartan/Hydrochlorothiazide [Losartan-Hctz 50-12.5 mg Tab] 1 each PO DAILY Metformin HCl [Glucophage XR 500 mg Tablet] 500 mg PO WSUPPER 03/15/18 Allergies/Adverse Reactions: sulfamethoxazole [From Bactrim] Allergy (Intermediate, Verified 01/26/18 17:24) hives, white tounge, trimethoprim [From Bactrim] Allergy (Intermediate, Verified 01/26/18 17:24) hives, white tounge, bandaids Allergy (Mild, Uncoded 01/26/18 17:24) redness Review of Systems All systems: reviewed and no additional remarkable complaints except as stated Physical Exam Vital Signs: Temp Pulse Resp BP Pulse Ox 34 H 105/44 L 97 03/15/18 17:33 03/15/18 17:33 03/15/18 17:33 General appearance: PRESENT: no acute distress Head exam: PRESENT: atraumatic, normocephalic Eye exam: PRESENT: conjunctiva pink, EOMI, PERRLA. ABSENT: scleral icterus Ear exam: PRESENT: normal external ear exam Mouth exam: PRESENT: moist, tongue midline Neck exam: ABSENT: carotid bruit, JVD, lymphadenopathy, thyromegaly Respiratory exam: PRESENT: clear to auscultation simon. ABSENT: rales, rhonchi, wheezes Cardiovascular exam: PRESENT: RRR. ABSENT: diastolic murmur, rubs, systolic murmur Pulses: PRESENT: normal dorsalis pedis pul Vascular exam: PRESENT: normal capillary refill GI/Abdominal exam: PRESENT: normal bowel sounds, soft. ABSENT: distended, guarding, mass, organolmegaly, rebound, tenderness Rectal exam: PRESENT: deferred Extremities exam: PRESENT: full ROM. ABSENT: calf tenderness, clubbing, pedal edema Neurological exam: PRESENT: alert, awake, oriented to person, oriented to place , oriented to time, oriented to situation, CN II-XII grossly intact. ABSENT: motor sensory deficit Skin exam: PRESENT: dry, intact, warm. ABSENT: cyanosis, rash Results Impressions: Chest/Abdomen CTA 03/15/18 14:16 IMPRESSION: No PE. Primarily interstitial pattern with coalescing nodules and diffuse distribution. Less striking ground-glass attenuation compared to the prior. Differential is broad and includes atypical infection, sarcoid, hypersensitivity pneumonitis, amyloidosis, among others. Consider bronchoscopy for tissue sampling. Head CT 03/15/18 14:17 IMPRESSION: NORMAL BRAIN CT WITHOUT CONTRAST. EVIDENCE OF ACUTE STROKE: NO. Assessment & Plan - Diagnosis (2) Hypotension Qualifiers: Hypotension type: unspecified hypotension type Qualified Code(s): I95.9 - Hypotension, unspecified - Plan Summary Plan Summary: Severe sepsis and hypotension: Patient is resuscitated successfully with IV fluid challenge and she does not require any pressors Bilateral pneumonia: Start ceftriaxone and azithromycin. Follow blood cultures and sputum cultures Diabetes: Hold metformin for now and start insulin coverage for hyperglycemia History of hypertension: She is currently hypotensive. We will hold all her antihypertensive medications. Monitor blood pressure. History of ulcerative colitis and irritable bowel syndrome: He presented with vomiting and diarrhea. No abdominal pain. No hematemesis or melena. Continue fluid resuscitation and monitor volume status. DVT prophylaxis
--- NOTE | 2018-03-15 19:40 | PDOC CONSULTATION ---
Consultation Consult Date: 03/15/18 Attending physician:: CHRISTOPHER WHITAKER Consult reason:: Hypotension History of Present Illness Admission Date/PCP: 03/15/18 16:02 NAPOLEON HERNADEZ MD Patient complains of: General fatigue, tiredness and also chest pain History of Present Illness: SUAD CROOK is a 53 year old female admitted through the emergency department for evaluation of collapse. Patient was at work and she had sudden collapse. Was found from a hypotensive by EMS. IV was established. Fluids begun. Accu- Chek was normal. Patient was alert and responsive but lethargic. By report from patient as well as medical records she had a similar episode approximately 3 weeks ago after taking losartan. Patient took another losartan this morning. Is complaining of chest pain. This patient was seen in the emergency room at the request of Dr. Whitaker. Patient was noted to be severely hypotensive and also hypoxic. I was called to the bedside to evaluate this patient. Patient was also complaining of chest pain. EKG machine was attached with continuous twelve-lead EKG regimen. No ST- T wave changes are noted. It was felt that we needed to rule out pulmonary embolism. Patient was sent over for a CTA of the chest. This was technically difficult study but no large central pulmonary emboli was noted. It was felt that patient was most likely having septic shock and was treated as such. A 2D echo showed LVEF to be relatively well-preserved. RV EF within normal limit, no significant valvular restenosis or regurgitation noted. No pericardial effusion was noted. Patient was given IV fluid boluses and subsequently her blood pressure improved. Twelve-lead EKG is obtained in the ER 2 were reviewed and were negative for any acute ST-T wave changes. Subsequently it was felt that patient can be admitted here and hospitalist were called to admit. I was asked to follow patient along. Past Medical History Cardiac Medical History: Reports: Hypertension Denies: Coronary Artery Disease, Myocardial Infarction Pulmonary Medical History: Reports: Asthma, Bronchitis, Pneumonia Denies: Chronic Obstructive Pulmonary Disease (COPD) Neurological Medical History: Denies: Seizures Musculoskeltal Medical History: Reports: Arthritis Hematology: Denies: Anemia Past Surgical History Past Surgical History: Reports: Cholecystectomy, Hysterectomy, Tonsillectomy, Tubal Ligation Denies: Pacemaker Social History Information Source: Patient Lives with: Spouse/Significant other Smoking Status: Unknown if Ever Smoked - Advance Directive Resuscitation Status: Full Code Surrogate healthcare decision maker:: Patient's is the surrogate decision-maker Family History Family History: Other - Sarcoidosis Parental Family History Reviewed: Yes Children Family History Reviewed: Yes Sibling(s) Family History Reviewed.: Yes Medication/Allergy Home Medications: Duloxetine HCl [Cymbalta] 60 mg PO DAILY 03/15/18 Metformin HCl [Glucophage XR 500 mg Tablet] 500 mg PO WSUPPER 03/15/18 Levofloxacin [Levaquin 750 mg Tablet] 750 mg PO DAILY #5 tablet 03/18/18 Allergies/Adverse Reactions: sulfamethoxazole [From Bactrim] Allergy (Intermediate, Verified 01/26/18 17:24) hives, white tounge, trimethoprim [From Bactrim] Allergy (Intermediate, Verified 01/26/18 17:24) hives, white tounge, bandaids Allergy (Mild, Uncoded 01/26/18 17:24) redness Review of Systems ROS unobtainable: Other - Not obtained as patient was noted to be in the extremely critical. However there is no prior history of myocardial infarction , angina, blood clots in the legs and in the lungs, strokes, mini strokes or any history of internal bleed, ulcers etc. No history of drug abuse. Physical Exam Vital Signs: Temp Pulse Resp BP Pulse Ox 28 H 106/67 96 03/15/18 19:01 03/15/18 19:01 03/15/18 19:01 Intake & Output 03/14/18 03/15/18 03/16/18 06:59 06:59 06:59 Intake Total 1000 Balance 1000 Exam: GENERAL: well-nourished and in no acute distress. Alert and oriented x3 HEAD: Atraumatic, normocephalic. EYES: Pupils equal round and reactive to light, extraocular movements intact, sclera anicteric, conjunctiva are normal. ENT: TMs normal, nares patent, oropharynx clear without exudates. Moist mucous membranes. No oral ulcerations or bleeding gums noted NECK: supple without lymphadenopathy. Trachea is central. No cervical or axillary lymphadenopathy noted. Carotids are 2+, JVD WNL LUNGS: Respiration seems nonlabored, no significant accessory muscle action noted. Breath sounds clear to auscultation bilaterally and equal noted. No wheezes rales or rhonchi noted. No significant dullness noted on percussion. CHEST: Palpation of the chest wall shows no significant chest wall tenderness. HEART: Ashby POTATO LOADER, No PSH, 1/6 SHANA aortic area, 1/6 hensley systolic murmur mitral area, no rubs, no gallops. ABDOMEN: Soft, no significant tenderness appreciated, normoactive bowel sounds. No guarding, no rebound. No rigidity noted . No masses appreciated. EXTREMITIES: Pedal pulses are 1-2+, no calf tenderness noted. No clubbing or cyanosis. negative pedal edema noted NEUROLOGICAL: Focused neurological exam showed no significant neurologic deficit. Normal speech, no focal weakness appreciated. PSYCH: Normal mood, normal affect. Judgment and insight within normal limits. SKIN: No significant ecchymosis, skin is noted to be warm. MUSCULOSKELETAL EXAM: No significant acute joint swelling noted. Results EKG Comments: Shows mild sinus tachycardia. No acute ST-T wave changes are noted. Impressions: Chest/Abdomen CTA 03/15/18 14:16 IMPRESSION: No PE. Primarily interstitial pattern with coalescing nodules and diffuse distribution. Less striking ground-glass attenuation compared to the prior. Differential is broad and includes atypical infection, sarcoid, hypersensitivity pneumonitis, amyloidosis, among others. Consider bronchoscopy for tissue sampling. Head CT 03/15/18 14:17 IMPRESSION: NORMAL BRAIN CT WITHOUT CONTRAST. EVIDENCE OF ACUTE STROKE: NO. Renal Ultrasound 03/15/18 15:26 IMPRESSION: NORMAL RENAL AND BLADDER ULTRASOUND. 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 helper insulin use: unspecified fpc insulin use status Diabetes mellitus complication status : with unspecified complications Qualified Code(s): E11.8 - Type 2 diabetes mellitus with unspecified complications Is this a current diagnosis for this admission?: Yes (4) History of hypertension Is this a current diagnosis for this admission?: Yes (5) Pneumonia Qualifiers: Pneumonia type: due to unspecified organism Laterality: unspecified laterality Lung location: unspecified part of lung Qualified Code(s): J18.9 - Pneumonia, unspecified organism Is this a current diagnosis for this admission?: Yes (6) SIRS (systemic inflammatory response syndrome) Is this a current diagnosis for this admission?: Yes (7) Hypoxemia Is this a current diagnosis for this admission?: Yes - Notes Notes: I was consulted because of hypotension. Patient hypotension responded to fluid resuscitation. Hypotension was felt to be related to sepsis may process of elimination. Also subsequently when complete blood count came back, this suspicion was confirmed. At this point, after obtaining blood culture, broad- spectrum antibiotics are being started. I was consulted by Dr. Whitaker in the emergency room to help with management as the patient was noted to be severely hypotensive and severely hypoxemic in spite of having high flow oxygen. Patient was being fluid resuscitated. I ordered a stat 2D echocardiogram which was reviewed. It showed LVEF to be relatively well-preserved. Multiple EKGs done in the emergency room in my presence were reviewed with Dr. Whitaker and acute coronary syndrome was ruled out. Patient also had a CT angiogram performed to rule out pulmonary embolism which was noted to be negative but did confirm suspicion of sepsis and pneumonitis. I was in the ER for approximately 45 minutes to help manage this patient with Dr. Whitaker. At this point will recommend continuous IV fluid resuscitation. Initially patient had 0 urine output but subsequently once blood pressure improved, she was noted to have satisfactory urine output. Patient did receive up to 3 L of IV fluids in the emergency room as part of shared management between me and Dr. Whitaker. At this point will follow patient. 2D echo results reviewed with patient's family and Dr. Whitaker. Subsequently case discussed with hospitalist. - Time Time Spent: 30 to 50 Minutes - CODE STATUS was discussed, patient remains full code. Surrogate decision-maker unchanged. Multiple medical problems were addressed. More than 50% of the time spent coordinating care, discussing management plans with involved caregivers. Management plans discussed with involved personnels. Medical decision making was of moderate to high complexity , patient's has multiple comorbidities. Total Critical Time (Minutes): 35 Medications reviewed and adjusted accordingly: Yes
[2018-03-15] MEDS ORDERED: DEXTROSE 50%-WATER 25 GM/50 ML DISP.SYRIN IV PRN ×2 (19:49)
[2018-03-15] MEDS ORDERED: INSULIN LISPRO 100 UNIT/ML 3 ML VIAL SUBCUT PRN (19:49)
[2018-03-15] MEDS ORDERED: GLUCAGON,HUMAN RECOMB 1 MG INJ IM PRN (19:49)
[2018-03-15] MEDS ORDERED: DEXTROSE 40% GEL 15 GM TUBE PO PRN ×2 (19:49)
--- NOTE | 2018-03-15 19:50 | EKG REPORT ---
SEVERITY:- ABNORMAL ECG - SINUS RHYTHM RAA, CONSIDER BIATRIAL ABNORMALITIES CONSIDER RIGHT VENTRICULAR HYPERTROPHY PROLONGED QT INTERVAL : Confirmed by: Vivek Rios MD 15-Mar-2018 19:49:51
--- NOTE | 2018-03-15 19:50 | EKG REPORT ---
SEVERITY:- ABNORMAL ECG - SINUS TACHYCARDIA RIGHT AXIS DEVIATION BORDERLINE INFERIOR Q WAVES PROLONGED QT INTERVAL : Confirmed by: Vivek Rios MD 15-Mar-2018 19:49:38
[2018-03-15] MEDS: CEFTRIAXONE SODIUM 1,000 MG in NORMAL SALINE 50 ML IV SCH (20:15)
[2018-03-15] MEDS ORDERED: KETOROLAC TROMETHAMINE INJ/PF 30 MG/1 ML SDV ONE (21:23)
[2018-03-15] MEDS: NORMAL SALINE 1000 ML 1,000 ML IV PRN (21:29)
[2018-03-16] MEDS ORDERED: KETOROLAC TROMETHAMINE INJ/PF 30 MG/1 ML SDV IV ONE (00:30)
[2018-03-16] MEDS: IPRATROPIUM/ALBUTEROL 0.5-2.5 MG/3 ML AMPUL NEB SCH ×5 (04:24→19:39)
[2018-03-16] MEDS: NORMAL SALINE 1000 ML 1,000 ML IV PRN ×2 (05:28→20:40)
[2018-03-16 05:46] LABS: ABSOLUTE EOSINOPHILS # (AUTO) 0.1 10^3/uL (0.0-0.6); ABSOLUTE LYMPHOCYTES (AUTO) 0.9 10^3/uL (0.5-4.7); ABSOLUTE MONOCYTES (AUTO) 0.7 10^3/uL (0.1-1.4); ABSOLUTE NEUT (AUTO) 12.8 10^3/uL (1.7-8.2); BASOPHILS % (AUTO) 0.2 % (0-2); EOSINOPHILS % (AUTO) 0.5 % (0-6); HEMATOCRIT 40.9 % (36.0-47.0); LYMPHOCYTES % (AUTO) 6.1 % (13-45); MEAN CORPUSCULAR HGB CONC 33.6 g/dL (32.0-36.0); MEAN CORPUSCULAR VOLUME 86 fl (80-97); MONOCYTES % (AUTO) 4.5 % (3-13); PLATELET COUNT 142 10^3/uL (150-450); RED BLOOD COUNT 4.74 10^6/uL (3.72-5.28); RED CELL DISTRIBUTION WIDTH 14.1 % (11.5-14.0); SEGMENTED NEUTROPHILS % (AUTO) 88.7 % (42-78); TOTAL CELLS COUNTED % (AUTO) 100 %
[2018-03-16 06:02] LABS: ANION GAP 12 (5-19); BLOOD UREA NITROGEN 18 mg/dL (7-20); CALCIUM 7.3 mg/dL (8.4-10.2); CARBON DIOXIDE 20 mmol/L (22-30); CHLORIDE 105 mmol/L (98-107); GLUCOSE 127 mg/dL (75-110); POTASSIUM 4.1 mmol/L (3.6-5.0); SODIUM 136.5 mmol/L (137-145)
[2018-03-16 06:28] LABS: HEMOGLOBIN 13.7 g/dL (12.0-15.5); WHITE BLOOD COUNT 14.4 10^3/uL (4.0-10.5)
[2018-03-16] MEDS: CEFTRIAXONE SODIUM 1,000 MG in NORMAL SALINE 50 ML IV SCH (09:43)
[2018-03-16] MEDS: KETOROLAC TROMETHAMINE INJ/PF 30 MG/1 ML SDV IV PRN ×3 (09:43→23:32)
[2018-03-16] MEDS: ENOXAPARIN SODIUM INJ 40 MG/0.4 ML DISP.SYRIN SUBCUT SCH (09:43)
--- NOTE | 2018-03-16 12:29 | PDOC PROGRESS REPORT ---
Subjective Progress Note for:: 03/16/18 Subjective:: Patient is doing better overall. Her white count is higher today. Her pressure is much better. I am not sure why she is on BiPAP but we will discontinue that today. Test for TB is pending Reason For Visit: SEPSIS,PNEUMONIA Physical Exam Vital Signs: Temp Pulse Resp BP Pulse Ox 99.4 F 81 17 115/53 L 99 03/16/18 11:00 03/16/18 12:05 03/16/18 12:05 03/16/18 11:00 03/16/18 12:05 Intake & Output 03/15/18 03/16/18 03/17/18 06:59 06:59 06:59 Intake Total 3248 200 Output Total 775 200 Balance 2473 0 Weight 238 lb 12.17 oz General appearance: PRESENT: no acute distress, well-developed, well-nourished Head exam: PRESENT: atraumatic, normocephalic Eye exam: PRESENT: conjunctiva pink, EOMI, PERRLA. ABSENT: scleral icterus Ear exam: PRESENT: normal external ear exam Mouth exam: PRESENT: moist, tongue midline Neck exam: ABSENT: carotid bruit, JVD, lymphadenopathy, thyromegaly Respiratory exam: PRESENT: clear to auscultation simon. ABSENT: rales, rhonchi, wheezes Cardiovascular exam: PRESENT: RRR. ABSENT: diastolic murmur, rubs, systolic murmur Pulses: PRESENT: normal dorsalis pedis pul Vascular exam: PRESENT: normal capillary refill GI/Abdominal exam: PRESENT: normal bowel sounds, soft. ABSENT: distended, guarding, mass, organolmegaly, rebound, tenderness Rectal exam: PRESENT: deferred Extremities exam: PRESENT: full ROM. ABSENT: calf tenderness, clubbing, pedal edema Neurological exam: PRESENT: alert, awake, oriented to person, oriented to place , oriented to time, oriented to situation, CN II-XII grossly intact. ABSENT: motor sensory deficit Psychiatric exam: PRESENT: appropriate affect, normal mood. ABSENT: homicidal ideation, suicidal ideation Skin exam: PRESENT: dry, intact, warm. ABSENT: cyanosis, rash Results Laboratory Results: 03/16/18 04:59 03/16/18 04:59 03/15/18 03/16/18 03/16/18 19:37 04:59 04:59 WBC 14.4 H D RBC 4.74 Hgb 13.7 D Hct 40.9 MCV 86 MCH 29.0 MCHC 33.6 RDW 14.1 H Plt Count 142 L Seg Neutrophils % 88.7 H Lymphocytes % 6.1 L Monocytes % 4.5 Eosinophils % 0.5 Basophils % 0.2 Absolute Neutrophils 12.8 H Absolute Lymphocytes 0.9 Absolute Monocytes 0.7 Absolute Eosinophils 0.1 Absolute Basophils 0.0 Sodium 136.5 L Potassium 4.1 Chloride 105 Carbon Dioxide 20 L Anion Gap 12 BUN 18 Creatinine 1.01 Est GFR ( Amer) > 60 Est GFR (Non-Af Amer) 58 L Glucose 127 H Lactic Acid 4.1 H Calcium 7.3 L Impressions: Chest/Abdomen CTA 03/15/18 14:16 IMPRESSION: No PE. Primarily interstitial pattern with coalescing nodules and diffuse distribution. Less striking ground-glass attenuation compared to the prior. Differential is broad and includes atypical infection, sarcoid, hypersensitivity pneumonitis, amyloidosis, among others. Consider bronchoscopy for tissue sampling. Head CT 03/15/18 14:17 IMPRESSION: NORMAL BRAIN CT WITHOUT CONTRAST. EVIDENCE OF ACUTE STROKE: NO. Renal Ultrasound 03/15/18 15:26 IMPRESSION: NORMAL RENAL AND BLADDER ULTRASOUND. Assessment & Plan - Diagnosis (1) Pneumonia Qualifiers: Pneumonia type: due to unspecified organism Laterality: unspecified laterality Lung location: unspecified part of lung Qualified Code(s): J18.9 - Pneumonia, unspecified organism Is this a current diagnosis for this admission?: Yes (2) Hypotension Qualifiers: Hypotension type: other hypotension type Qualified Code(s): I95.89 - Other hypotension Is this a current diagnosis for this admission?: Yes (3) SIRS (systemic inflammatory response syndrome) Is this a current diagnosis for this admission?: Yes (4) Diabetes Qualifiers: Diabetes mellitus type: type 2 Diabetes mellitus custodial insulin use: unspecified custodial insulin use status Diabetes mellitus complication status : with unspecified complications Qualified Code(s): E11.8 - Type 2 diabetes mellitus with unspecified complications Is this a current diagnosis for this admission?: Yes (7) History of hypertension Is this a current diagnosis for this admission?: Yes - Plan Summary Plan Summary: Severe sepsis and hypotension: Patient is resuscitated successfully with IV fluid challenge and she did not require any pressors. Blood pressure is currently stable Bilateral pneumonia: Continue ceftriaxone and azithromycin. Follow blood cultures and sputum cultures Diabetes: Need to hold metformin for now and continue insulin coverage for hyperglycemia History of hypertension: She presented with hypotension. Continue to hold all her antihypertensive medications. Monitor blood pressure. History of ulcerative colitis and irritable bowel syndrome: He presented with vomiting and diarrhea. No abdominal pain. No hematemesis or melena. She is improved. DVT prophylaxis
--- NOTE | 2018-03-16 18:30 | PDOC PROGRESS REPORT ---
Subjective Progress Note for:: 03/16/18 Subjective:: Patient seems to be doing better with gradual improvement. Patient however still in some respiratory distress and needing high flow oxygen and positive pressure noninvasive ventilation. Pt is denying any chest arm or neck discomfort. Patient denying any PND, orthopnea. Patient denied any sustained palpitations, dizziness, syncope, near syncope. Patient denying any fever chills. Patient denying any other significant discomfort. Patient is maintaining sinus rhythm. Review of systems: Rest review of systems negative. Medications: Medications have been reviewed. Reason For Visit: SEPSIS,PNEUMONIA Physical Exam Vital Signs: Temp Pulse Resp BP Pulse Ox 99.1 F 94 19 113/54 L 100 03/16/18 15:08 03/16/18 16:22 03/16/18 16:22 03/16/18 15:08 03/16/18 16:22 Intake & Output 03/15/18 03/16/18 03/17/18 06:59 06:59 06:59 Intake Total 3248 300 Output Total 775 550 Balance 2473 -250 Weight 108.3 kg Exam: GENERAL: well-nourished and in no acute distress. Alert and oriented x3 HEAD: Atraumatic, normocephalic. EYES: Pupils equal round and reactive to light, extraocular movements intact, sclera anicteric, conjunctiva are normal. ENT: TMs normal, nares patent, oropharynx clear without exudates. Moist mucous membranes. No oral ulcerations or bleeding gums noted NECK: supple without lymphadenopathy. Trachea is central. No cervical or axillary lymphadenopathy noted. Carotids are 2+, JVD WNL LUNGS: Respiration seems nonlabored, no significant accessory muscle action noted. Bibasilar fine crackles and few a scattered wheezes rales or rhonchi noted. No significant dullness noted on percussion. CHEST: Palpation of the chest wall shows no significant chest wall tenderness. 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 ABDOMEN: Soft, no significant tenderness appreciated, normoactive bowel sounds. No guarding, no rebound. No rigidity noted . No masses appreciated. EXTREMITIES: Pedal pulses are 1-2+, no calf tenderness noted. No clubbing or cyanosis. 1+ pedal edema noted NEUROLOGICAL: Focused neurological exam showed no significant neurologic deficit. Normal speech, no focal weakness appreciated. PSYCH: Normal mood, normal affect. Judgment and insight within normal limits. SKIN: No significant ecchymosis, skin is noted to be warm. MUSCULOSKELETAL EXAM: No significant acute joint swelling noted. Results Laboratory Results: 03/16/18 04:59 03/16/18 04:59 03/15/18 03/16/18 03/16/18 19:37 04:59 04:59 WBC 14.4 H D RBC 4.74 Hgb 13.7 D Hct 40.9 MCV 86 MCH 29.0 MCHC 33.6 RDW 14.1 H Plt Count 142 L Seg Neutrophils % 88.7 H Lymphocytes % 6.1 L Monocytes % 4.5 Eosinophils % 0.5 Basophils % 0.2 Absolute Neutrophils 12.8 H Absolute Lymphocytes 0.9 Absolute Monocytes 0.7 Absolute Eosinophils 0.1 Absolute Basophils 0.0 Sodium 136.5 L Potassium 4.1 Chloride 105 Carbon Dioxide 20 L Anion Gap 12 BUN 18 Creatinine 1.01 Est GFR ( Amer) > 60 Est GFR (Non-Af Amer) 58 L Glucose 127 H Lactic Acid 4.1 H Calcium 7.3 L EKG Comments: Shows sinus rhythm without any sustained tachycardia or bradycardia. Impressions: Chest/Abdomen CTA 03/15/18 14:16 IMPRESSION: No PE. Primarily interstitial pattern with coalescing nodules and diffuse distribution. Less striking ground-glass attenuation compared to the prior. Differential is broad and includes atypical infection, sarcoid, hypersensitivity pneumonitis, amyloidosis, among others. Consider bronchoscopy for tissue sampling. Head CT 03/15/18 14:17 IMPRESSION: NORMAL BRAIN CT WITHOUT CONTRAST. EVIDENCE OF ACUTE STROKE: NO. Renal Ultrasound 03/15/18 15:26 IMPRESSION: NORMAL RENAL AND BLADDER ULTRASOUND. 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 Diabetes mellitus complication status : with unspecified complications Qualified Code(s): E11.8 - Type 2 diabetes mellitus with unspecified complications Is this a current diagnosis for this admission?: Yes (4) History of hypertension Is this a current diagnosis for this admission?: Yes (5) Pneumonia Qualifiers: Pneumonia type: due to unspecified organism Laterality: unspecified laterality Lung location: unspecified part of lung Qualified Code(s): J18.9 - Pneumonia, unspecified organism Is this a current diagnosis for this admission?: Yes (6) SIRS (systemic inflammatory response syndrome) Is this a current diagnosis for this admission?: Yes - Notes Notes: Hypotension: Resolved with fluid resuscitation. Currently seems euvolemic. Sepsis: Unknown organism. Blood cultures so far been negative. Continue antibiotic therapy. Diabetes: Recommend good control of blood sugar but avoid any hyper or hypoglycemia. Hypertension: Currently blood pressure is stable. Continue to monitor it closely. May need to resume antihypertensives. Pneumonia: Currently stable. Continue antibiotic therapy. Systemic inflammatory response syndrome: Currently much improved. Patient maintaining good vitals. Patient is noted to have mild peripheral edema. - Time Time with patient: Greater than 35 minutes - CODE STATUS was discussed, patient remains full code. Surrogate decision-maker patient's . Multiple medical problems were addressed. More than 50% of the time spent coordinating care, discussing management plans with involved caregivers. Management plans discussed with involved personnels. Medical decision making was of moderate to high complexity, patient's has multiple comorbidities. Medications reviewed and adjusted accordingly: Yes
[2018-03-16] MEDS: AZITHROMYCIN 250 MG TABLET PO SCH (18:55)
[2018-03-17] MEDS: IPRATROPIUM/ALBUTEROL 0.5-2.5 MG/3 ML AMPUL NEB SCH ×6 (00:28→19:35)
[2018-03-17] MEDS: NORMAL SALINE 1000 ML 1,000 ML IV PRN ×3 (04:46→21:42)
[2018-03-17 05:22] LABS: HEMATOCRIT 39.6 % (36.0-47.0); HEMOGLOBIN 13.5 g/dL (12.0-15.5); MEAN CORPUSCULAR HEMOGLOBIN 29.2 pg (27.0-33.4); MEAN CORPUSCULAR VOLUME 86 fl (80-97); RED BLOOD COUNT 4.61 10^6/uL (3.72-5.28); RED CELL DISTRIBUTION WIDTH 14.5 % (11.5-14.0); WHITE BLOOD COUNT 10.1 10^3/uL (4.0-10.5)
[2018-03-17 05:27] LABS: ANION GAP 6 (5-19); BLOOD UREA NITROGEN 13 mg/dL (7-20); CALCIUM 7.7 mg/dL (8.4-10.2); CARBON DIOXIDE 26 mmol/L (22-30); CHLORIDE 110 mmol/L (98-107); GLUCOSE 102 mg/dL (75-110); POTASSIUM 3.5 mmol/L (3.6-5.0); SODIUM 141.7 mmol/L (137-145)
[2018-03-17 05:57] LABS: PLATELET COUNT 99 10^3/uL (150-450)
[2018-03-17] MEDS: ENOXAPARIN SODIUM INJ 40 MG/0.4 ML DISP.SYRIN SUBCUT SCH (10:33)
[2018-03-17] MEDS: CEFTRIAXONE SODIUM 1,000 MG in NORMAL SALINE 50 ML IV SCH (10:35)
--- NOTE | 2018-03-17 11:45 | Physician Advisory Note ---
Physician Advisor ProgressNote .: Pursuant to the plan for [facility], I have reviewed the medical record for this patient. Physician Advisor Statement: Please consider documenting, if you agree: 1. "Septic shock, due to PNA, evidenced by severe hypotension w/MAPs in the 60s repeatedly over hours despite 2L of IVF in ED & ongoing IVF resuscitation, along w/profound hypoxemic Acute Resp Failure, severely elevated lactate, initial Cecilia Coma Score of 14, & associated worsening thrombocytopenia" 2. "bilat PNA, suspect gram-____ type" (if unsure, consider what organisms being covered with chosen abx - please always state likely organism type w/PNA dx) 3. "Acute Hypoxemic Resp Failure" 4. Please avoid term "SIRS" when there is actually sepsis present - it is confusing for coders and can require queries. Thanks for your excellent care of this very complex case! CK Summary: 53yo morbidly obese (BMI 40.4) diabetic pt who arrived w/acute metabolic encephalopathy/"profoundly obtunded" w/total GSC of 14, "ashen", hypotensive, w/O2 sat 81%, w/tachycardia >100, tachypnea into the 30s, fevers, acute metabolic acidosis w/pO2 of 53, relative leukopenia, evidence of bilateral PNA by CXR, CT, & nursing/RT documentation of nonproductive cough, SOB , exertional SOB, coarse BS, inability to lie flat, need for O2 & even Bipap at times. - The next day, she evidenced leukocytosis & worsening thrombocytopenia. These points support the dx.s of severe sepsis/septic shock, & of PNA & acute hypoxemic resp failure.
[2018-03-17] MEDS: KETOROLAC TROMETHAMINE INJ/PF 30 MG/1 ML SDV IV PRN ×2 (13:58→21:47)
[2018-03-17 14:25] LABS: ARTERIAL BLOOD BASE EXCESS -2.1 mmol/L; ARTERIAL BLOOD H2CO3 1.24 mmol/L (1.05-1.35); ARTERIAL BLOOD HCO3 23.1 mmol/L (20-24); ARTERIAL BLOOD O2 SATURATION 95.6 % (94-98); ARTERIAL BLOOD PCO2 41.2 mmHg (35-45); ARTERIAL BLOOD PH 7.37 (7.35-7.45); ARTERIAL BLOOD PO2 80.6 mmHg (80-100); ARTERIAL BLOOD TOTAL CO2 24.4 mmol/L (21-25)
[2018-03-17 14:26] LABS: ARTERIAL BLOOD FIO2 2.5 L
--- NOTE | 2018-03-17 14:40 | PDOC PROGRESS REPORT ---
Subjective Progress Note for:: 03/17/18 Subjective:: Patient is doing better overall. Her white count is improved today. Her pressure is much better. Apparently the patient fingers turn purple even when she is on oxygen, when she is off the BiPAP. Test for TB is pending Reason For Visit: SEPSIS,PNEUMONIA Physical Exam Vital Signs: Temp Pulse Resp BP Pulse Ox 98.1 F 90 16 127/63 H 100 03/17/18 10:46 03/17/18 11:53 03/17/18 11:53 03/17/18 10:46 03/17/18 11:53 Intake & Output 03/16/18 03/17/18 03/18/18 06:59 06:59 06:59 Intake Total 3248 3000 1250 Output Total 775 1600 600 Balance 2473 1400 650 Weight 238 lb 12.17 oz 257 lb 15.053 oz 257 lb 15.053 oz General appearance: PRESENT: no acute distress, well-developed, well-nourished Head exam: PRESENT: atraumatic, normocephalic Eye exam: PRESENT: conjunctiva pink, EOMI, PERRLA. ABSENT: scleral icterus Ear exam: PRESENT: normal external ear exam Mouth exam: PRESENT: moist, tongue midline Neck exam: ABSENT: carotid bruit, JVD, lymphadenopathy, thyromegaly Respiratory exam: PRESENT: clear to auscultation simon. ABSENT: rales, rhonchi, wheezes Cardiovascular exam: PRESENT: RRR. ABSENT: diastolic murmur, rubs, systolic murmur Pulses: PRESENT: normal dorsalis pedis pul Vascular exam: PRESENT: normal capillary refill GI/Abdominal exam: PRESENT: normal bowel sounds, soft. ABSENT: distended, guarding, mass, organolmegaly, rebound, tenderness Rectal exam: PRESENT: deferred Extremities exam: PRESENT: full ROM. ABSENT: calf tenderness, clubbing, pedal edema Neurological exam: PRESENT: alert, awake, oriented to person, oriented to place , oriented to time, oriented to situation, CN II-XII grossly intact. ABSENT: motor sensory deficit Skin exam: PRESENT: dry, intact, warm. ABSENT: cyanosis, rash Results Laboratory Results: 03/17/18 04:24 03/17/18 04:24 03/17/18 03/17/18 03/17/18 04:24 04:24 14:11 WBC 10.1 RBC 4.61 Hgb 13.5 Hct 39.6 MCV 86 MCH 29.2 MCHC 34.0 RDW 14.5 H Plt Count 99 L Carbonic Acid 1.24 HCO3/H2CO3 Ratio 18:1 ABG pH 7.37 ABG pCO2 41.2 ABG pO2 80.6 ABG HCO3 23.1 ABG O2 Saturation 95.6 ABG Base Excess -2.1 FiO2 2.5 L Sodium 141.7 Potassium 3.5 L Chloride 110 H Carbon Dioxide 26 Anion Gap 6 BUN 13 Creatinine 0.67 Est GFR ( Amer) > 60 Est GFR (Non-Af Amer) > 60 Glucose 102 Calcium 7.7 L Impressions: Chest/Abdomen CTA 03/15/18 14:16 IMPRESSION: No PE. Primarily interstitial pattern with coalescing nodules and diffuse distribution. Less striking ground-glass attenuation compared to the prior. Differential is broad and includes atypical infection, sarcoid, hypersensitivity pneumonitis, amyloidosis, among others. Consider bronchoscopy for tissue sampling. Head CT 03/15/18 14:17 IMPRESSION: NORMAL BRAIN CT WITHOUT CONTRAST. EVIDENCE OF ACUTE STROKE: NO. Renal Ultrasound 03/15/18 15:26 IMPRESSION: NORMAL RENAL AND BLADDER ULTRASOUND. Assessment & Plan - Diagnosis (1) Pneumonia Qualifiers: Pneumonia type: due to unspecified organism Laterality: unspecified laterality Lung location: unspecified part of lung Qualified Code(s): J18.9 - Pneumonia, unspecified organism Is this a current diagnosis for this admission?: Yes (2) Hypotension Qualifiers: Hypotension type: other hypotension type Qualified Code(s): I95.89 - Other hypotension Is this a current diagnosis for this admission?: Yes (3) SIRS (systemic inflammatory response syndrome) Is this a current diagnosis for this admission?: Yes (4) Diabetes Qualifiers: Diabetes mellitus type: type 2 Diabetes mellitus [facility] insulin use: 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 Blood pressure is currently stable Bilateral pneumonia: Continue ceftriaxone and azithromycin. blood cultures and sputum cultures pending Diabetes: hold metformin for now and continue insulin coverage for hyperglycemia History of hypertension: She presented with hypotension. Continue to hold all her antihypertensive medications. Monitor blood pressure. Currently stable History of ulcerative colitis and irritable bowel syndrome: presented also with vomiting and diarrhea. Since admission there is no abdominal pain, hematemesis or melena. Thrombocytopenia: Hold Lovenox. Check HIT antibodies DVT prophylaxis
[2018-03-17] MEDS: AZITHROMYCIN 250 MG TABLET PO SCH (18:02)
--- NOTE | 2018-03-17 19:37 | PDOC PROGRESS REPORT ---
Subjective Progress Note for:: 03/17/18 Subjective:: Patient seems to be doing better with gradual improvement. Patient however still in some respiratory distress and needing high flow oxygen and positive pressure noninvasive ventilation. Pt is denying any chest arm or neck discomfort. Patient denying any PND, orthopnea. Patient denied any sustained palpitations, dizziness, syncope, near syncope. Patient denying any fever chills. Patient denying any other significant discomfort. Patient is maintaining sinus rhythm. Review of systems: Rest review of systems negative. Medications: Medications have been reviewed. Reason For Visit: SEPSIS,PNEUMONIA Physical Exam Vital Signs: Temp Pulse Resp BP Pulse Ox 98.1 F 93 20 127/63 H 96 03/17/18 10:46 03/17/18 15:33 03/17/18 15:33 03/17/18 10:46 03/17/18 15:33 Intake & Output 03/16/18 03/17/18 03/18/18 06:59 06:59 06:59 Intake Total 3248 3000 1500 Output Total 775 1600 1100 Balance 2473 1400 400 Weight 108.3 kg 117 kg 117 kg Exam: GENERAL: well-nourished and in no acute distress. Alert and oriented x3 HEAD: Atraumatic, normocephalic. EYES: Pupils equal round and reactive to light, extraocular movements intact, sclera anicteric, conjunctiva are normal. ENT: TMs normal, nares patent, oropharynx clear without exudates. Moist mucous membranes. No oral ulcerations or bleeding gums noted NECK: supple without lymphadenopathy. Trachea is central. No cervical or axillary lymphadenopathy noted. Carotids are 2+, JVD WNL LUNGS: Respiration seems nonlabored, no significant accessory muscle action noted. Bibasilar fine crackles are noted. No wheezes rales or rhonchi noted. No significant dullness noted on percussion. CHEST: Palpation of the chest wall shows no significant chest wall tenderness. 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 ABDOMEN: Soft, no significant tenderness appreciated, normoactive bowel sounds. No guarding, no rebound. No rigidity noted . No masses appreciated. EXTREMITIES: Pedal pulses are 1-2+, no calf tenderness noted. No clubbing or cyanosis. negative pedal edema noted NEUROLOGICAL: Focused neurological exam showed no significant neurologic deficit. Normal speech, no focal weakness appreciated. PSYCH: Normal mood, normal affect. Judgment and insight within normal limits. SKIN: No significant ecchymosis, skin is noted to be warm. MUSCULOSKELETAL EXAM: No significant acute joint swelling noted. Results Laboratory Results: 03/17/18 04:24 03/17/18 04:24 03/17/18 03/17/18 03/17/18 04:24 04:24 14:11 WBC 10.1 RBC 4.61 Hgb 13.5 Hct 39.6 MCV 86 MCH 29.2 MCHC 34.0 RDW 14.5 H Plt Count 99 L Carbonic Acid 1.24 HCO3/H2CO3 Ratio 18:1 ABG pH 7.37 ABG pCO2 41.2 ABG pO2 80.6 ABG HCO3 23.1 ABG O2 Saturation 95.6 ABG Base Excess -2.1 FiO2 2.5 L Sodium 141.7 Potassium 3.5 L Chloride 110 H Carbon Dioxide 26 Anion Gap 6 BUN 13 Creatinine 0.67 Est GFR ( Amer) > 60 Est GFR (Non-Af Amer) > 60 Glucose 102 Calcium 7.7 L EKG Comments: Showed sinus rhythm without any sustained tachycardia or bradycardia. Impressions: Chest/Abdomen CTA 03/15/18 14:16 IMPRESSION: No PE. Primarily interstitial pattern with coalescing nodules and diffuse distribution. Less striking ground-glass attenuation compared to the prior. Differential is broad and includes atypical infection, sarcoid, hypersensitivity pneumonitis, amyloidosis, among others. Consider bronchoscopy for tissue sampling. Head CT 03/15/18 14:17 IMPRESSION: NORMAL BRAIN CT WITHOUT CONTRAST. EVIDENCE OF ACUTE STROKE: NO. Renal Ultrasound 03/15/18 15:26 IMPRESSION: NORMAL RENAL AND BLADDER ULTRASOUND. Assessment & Plan - Diagnosis (1) Hypotension Qualifiers: Hypotension type: other hypotension type Qualified Code(s): I95.89 - Other hypotension Is this a current diagnosis for this admission?: Yes (2) Sepsis Qualifiers: Sepsis type: sepsis due to unspecified organism Qualified Code(s): A41.9 - Sepsis, unspecified organism Is this a current diagnosis for this admission?: Yes (3) Diabetes Qualifiers: Diabetes mellitus type: type 2 Diabetes mellitus senior living insulin use: unspecified senior living insulin use status Diabetes mellitus complication status : with unspecified complications Qualified Code(s): E11.8 - Type 2 diabetes mellitus with unspecified complications Is this a current diagnosis for this admission?: Yes (4) History of hypertension Is this a current diagnosis for this admission?: Yes (5) Pneumonia Qualifiers: Pneumonia type: due to unspecified organism Laterality: unspecified laterality Lung location: unspecified part of lung Qualified Code(s): J18.9 - Pneumonia, unspecified organism Is this a current diagnosis for this admission?: Yes (6) SIRS (systemic inflammatory response syndrome) Is this a current diagnosis for this admission?: Yes - Notes Notes: Patient is showing good improvement. Still needing some oxygen supplementation but this is getting better. Hypotension: Resolved with fluid resuscitation. Currently seems euvolemic. Sepsis: Unknown organism. Blood cultures so far been negative. Continue antibiotic therapy. Diabetes: Recommend good control of blood sugar but avoid any hyper or hypoglycemia. Hypertension: Currently blood pressure is stable. Continue to monitor it closely. May need to resume antihypertensives. Pneumonia: Currently stable. Continue antibiotic therapy. Systemic inflammatory response syndrome: Currently much improved. Patient maintaining good vitals. Patient is noted to have mild peripheral edema. Patient will benefit from a sleep evaluation as an outpatient. Patient will also benefit from gradual weight loss. - Time Time with patient: 15-25 minutes - CODE STATUS was discussed, patient remains full code. Surrogate decision-maker unchanged. Multiple medical problems were addressed. More than 50% of the time spent coordinating care, discussing management plans with involved caregivers. Management plans discussed with involved personnels. Medical decision making was of moderate to high complexity , patient's has multiple comorbidities. Medications reviewed and adjusted accordingly: Yes
[2018-03-18] MEDS: IPRATROPIUM/ALBUTEROL 0.5-2.5 MG/3 ML AMPUL NEB SCH ×4 (00:33→11:45)
[2018-03-18] MEDS: NORMAL SALINE 1000 ML 1,000 ML IV PRN (04:31)
[2018-03-18 05:17] LABS: HEMATOCRIT 36.2 % (36.0-47.0); HEMOGLOBIN 12.2 g/dL (12.0-15.5); MEAN CORPUSCULAR HEMOGLOBIN 29.2 pg (27.0-33.4); MEAN CORPUSCULAR HGB CONC 33.7 g/dL (32.0-36.0); MEAN CORPUSCULAR VOLUME 87 fl (80-97); PLATELET COUNT 116 10^3/uL (150-450); RED BLOOD COUNT 4.17 10^6/uL (3.72-5.28); RED CELL DISTRIBUTION WIDTH 14.3 % (11.5-14.0); WHITE BLOOD COUNT 9.4 10^3/uL (4.0-10.5)
[2018-03-18 05:39] LABS: ANION GAP 7 (5-19); BLOOD UREA NITROGEN 7 mg/dL (7-20); CALCIUM 7.7 mg/dL (8.4-10.2); CARBON DIOXIDE 24 mmol/L (22-30); CHLORIDE 112 mmol/L (98-107); GLUCOSE 101 mg/dL (75-110); POTASSIUM 3.5 mmol/L (3.6-5.0); SODIUM 142.8 mmol/L (137-145)
[2018-03-18] MEDS: CEFTRIAXONE SODIUM 1,000 MG in NORMAL SALINE 50 ML IV SCH (11:00)
[2018-03-18] MEDS: KETOROLAC TROMETHAMINE INJ/PF 30 MG/1 ML SDV IV PRN (11:03)
--- NOTE | 2018-03-18 12:25 | PDOC DISCHARGE SUMMARY ---
General - Admit/Disc Date/PCP Admission Date/Primary Care Provider: 03/15/18 16:02 NAPOLEON HERNADEZ MD Discharge Date: 03/18/18 - Discharge Diagnosis (1) Pneumonia Is this a current diagnosis for this admission?: Yes (2) Hypotension Is this a current diagnosis for this admission?: Yes (3) SIRS (systemic inflammatory response syndrome) Is this a current diagnosis for this admission?: Yes (4) Diabetes Is this a current diagnosis for this admission?: Yes (7) History of hypertension Is this a current diagnosis for this admission?: Yes - Additional Information Resuscitation Status: Full Code Discharge Diet: As Tolerated, Diabetic Discharge Activity: Activity As Tolerated Prescriptions: Levofloxacin [Levaquin 750 mg Tablet] 750 mg PO DAILY #5 tablet Home Medications: Duloxetine HCl [Cymbalta] 60 mg PO DAILY 03/15/18 Metformin HCl [Glucophage XR 500 mg Tablet] 500 mg PO WSUPPER 03/15/18 Levofloxacin [Levaquin 750 mg Tablet] 750 mg PO DAILY #5 tablet 03/18/18 History of Present Illness History of Present Illness: SUAD CROOK is a 53 year old female who presents to the emergency room today after she collapsed at work and was hypotensive when she was found by the EMS. Patient apparently was complaining of feeling cold along with dry cough and shortness of breath started today along with vomiting nausea and diarrhea. She did not eat anything today and took her blood pressure medications as well. Patient was severely hypotensive when she came to the emergency room and she was resuscitated with IV fluids and currently her blood pressure is is appropriate. Her CT scan was positive for diffuse bilateral infiltrates. She works in a [employer] and testing for tuberculosis was sent out by the ER physician. Hospital Course Hospital Course: Patient was admitted for severe sepsis and hypotension bilateral pneumonia. Her pressure responded very well to fluid challenge and did not require any pressors. And continued to be stable. Pneumonia responded very well to ceftriaxone and azithromycin. We held metformin and was started insulin sliding scale for her diabetes. We held antihypertensive medications. She developed mild thrombocytopenia we held Lovenox and her platelet count bounced back very very good. Because she works in a f[employer], there was a concern of TB but she did not really have any signs or symptoms. She responded very well to antibiotics. The tests for TB are pending. She was instructed not to go to work until she received the results. She will follow-up with her primary care physician. I really stressed that she needs to get the results of the QuantiFERON test which should be back next week. Again my suspicion for TB is very low. Physical Exam Vital Signs: Temp Pulse Resp BP Pulse Ox 98.9 F 81 16 130/75 H 95 03/18/18 10:52 03/18/18 11:45 03/18/18 11:45 03/18/18 10:52 03/18/18 11:45 Intake & Output 03/17/18 03/18/18 03/19/18 06:59 06:59 06:59 Intake Total 3000 3340 350 Output Total 1600 2700 1400 Balance 1400 640 -1050 Weight 257 lb 15.053 oz 248 lb 3.848 oz General appearance: PRESENT: no acute distress, well-developed, well-nourished Head exam: PRESENT: atraumatic, normocephalic Eye exam: PRESENT: conjunctiva pink, EOMI, PERRLA. ABSENT: scleral icterus Ear exam: PRESENT: normal external ear exam Mouth exam: PRESENT: moist, tongue midline Neck exam: ABSENT: carotid bruit, JVD, lymphadenopathy, thyromegaly Respiratory exam: PRESENT: clear to auscultation simon. ABSENT: rales, rhonchi, wheezes Cardiovascular exam: PRESENT: RRR. ABSENT: diastolic murmur, rubs, systolic murmur Pulses: PRESENT: normal dorsalis pedis pul Vascular exam: PRESENT: normal capillary refill GI/Abdominal exam: PRESENT: normal bowel sounds, soft. ABSENT: distended, guarding, mass, organolmegaly, rebound, tenderness Rectal exam: PRESENT: deferred Extremities exam: PRESENT: full ROM. ABSENT: calf tenderness, clubbing, pedal edema Neurological exam: PRESENT: alert, awake, oriented to person, oriented to place , oriented to time, oriented to situation, CN II-XII grossly intact. ABSENT: motor sensory deficit Psychiatric exam: PRESENT: appropriate affect, normal mood. ABSENT: homicidal ideation, suicidal ideation Skin exam: PRESENT: dry, intact, warm. ABSENT: cyanosis, rash Results Laboratory Results: 03/18/18 04:30 03/18/18 04:30 03/17/18 03/18/18 03/18/18 14:11 04:30 04:30 WBC 9.4 RBC 4.17 Hgb 12.2 Hct 36.2 MCV 87 MCH 29.2 MCHC 33.7 RDW 14.3 H Plt Count 116 L Carbonic Acid 1.24 HCO3/H2CO3 Ratio 18:1 ABG pH 7.37 ABG pCO2 41.2 ABG pO2 80.6 ABG HCO3 23.1 ABG O2 Saturation 95.6 ABG Base Excess -2.1 FiO2 2.5 L Sodium 142.8 Potassium 3.5 L Chloride 112 H Carbon Dioxide 24 Anion Gap 7 BUN 7 Creatinine 0.56 Est GFR ( Amer) > 60 Est GFR (Non-Af Amer) > 60 Glucose 101 Calcium 7.7 L Impressions: Chest/Abdomen CTA 03/15/18 14:16 IMPRESSION: No PE. Primarily interstitial pattern with coalescing nodules and diffuse distribution. Less striking ground-glass attenuation compared to the prior. Differential is broad and includes atypical infection, sarcoid, hypersensitivity pneumonitis, amyloidosis, among others. Consider bronchoscopy for tissue sampling. Head CT 03/15/18 14:17 IMPRESSION: NORMAL BRAIN CT WITHOUT CONTRAST. EVIDENCE OF ACUTE STROKE: NO. Renal Ultrasound 03/15/18 15:26 IMPRESSION: NORMAL RENAL AND BLADDER ULTRASOUND. Qualifiers - * PATIENT BEING DISCHARGED WITH ANY OF THE FOLLOWING DIAGNOSIS: No
[2018-03-18] MEDS: AZITHROMYCIN 250 MG TABLET PO SCH (17:27)
[2018-03-18 17:35] VITALS: BP 103/46
--- NOTE | 2018-03-18 20:16 | PDOC PROGRESS REPORT ---
Subjective Progress Note for:: 03/18/18 Subjective:: Patient seems to be doing better. Patient did to be discharged today. Pt is denying any chest arm or neck discomfort. Patient denying any PND, orthopnea. Patient is much more comfortable and has ambulated to the restroom. Patient denied any sustained palpitations, dizziness, syncope, near syncope. Patient denying any fever chills. Patient denying any other significant discomfort. Patient is maintaining sinus rhythm. Review of systems: Rest review of systems negative. Medications: Medications have been reviewed. Reason For Visit: SEPSIS,PNEUMONIA Physical Exam Vital Signs: Temp Pulse Resp BP Pulse Ox 98.0 F 76 14 103/46 L 96 03/18/18 17:33 03/18/18 17:33 03/18/18 17:33 03/18/18 17:33 03/18/18 17:33 Intake & Output 03/17/18 03/18/18 03/19/18 06:59 06:59 06:59 Intake Total 3000 3340 1055 Output Total 1600 2700 1400 Balance 1400 640 -345 Weight 117 kg 112.6 kg Exam: GENERAL: well-nourished and in no acute distress. Alert and oriented x3 HEAD: Atraumatic, normocephalic. EYES: Pupils equal round and reactive to light, extraocular movements intact, sclera anicteric, conjunctiva are normal. ENT: TMs normal, nares patent, oropharynx clear without exudates. Moist mucous membranes. No oral ulcerations or bleeding gums noted NECK: supple without lymphadenopathy. Trachea is central. No cervical or axillary lymphadenopathy noted. Carotids are 2+, JVD WNL LUNGS: Respiration seems nonlabored, no significant accessory muscle action noted. Few bibasilar crackles are noted. No wheezes rales or rhonchi noted. No significant dullness noted on percussion. CHEST: Palpation of the chest wall shows no significant chest wall tenderness. HEART: [place] [employer], No PSH, 1/6 SHANA aortic area, 1/6 hensley systolic murmur mitral area, no rubs, no gallops. ABDOMEN: Soft, no significant tenderness appreciated, normoactive bowel sounds. No guarding, no rebound. No rigidity noted . No masses appreciated. EXTREMITIES: Pedal pulses are 1-2+, no calf tenderness noted. No clubbing or cyanosis. negative pedal edema noted NEUROLOGICAL: Focused neurological exam showed no significant neurologic deficit. Normal speech, no focal weakness appreciated. PSYCH: Normal mood, normal affect. Judgment and insight within normal limits. SKIN: No significant ecchymosis, skin is noted to be warm. MUSCULOSKELETAL EXAM: No significant acute joint swelling noted. Results Laboratory Results: 03/18/18 04:30 03/18/18 04:30 03/18/18 03/18/18 04:30 04:30 WBC 9.4 RBC 4.17 Hgb 12.2 Hct 36.2 MCV 87 MCH 29.2 MCHC 33.7 RDW 14.3 H Plt Count 116 L Sodium 142.8 Potassium 3.5 L Chloride 112 H Carbon Dioxide 24 Anion Gap 7 BUN 7 Creatinine 0.56 Est GFR ( Amer) > 60 Est GFR (Non-Af Amer) > 60 Glucose 101 Calcium 7.7 L EKG Comments: Showed sinus rhythm without any sustained tachycardia or bradycardia Impressions: Chest/Abdomen CTA 03/15/18 14:16 IMPRESSION: No PE. Primarily interstitial pattern with coalescing nodules and diffuse distribution. Less striking ground-glass attenuation compared to the prior. Differential is broad and includes atypical infection, sarcoid, hypersensitivity pneumonitis, amyloidosis, among others. Consider bronchoscopy for tissue sampling. Head CT 03/15/18 14:17 IMPRESSION: NORMAL BRAIN CT WITHOUT CONTRAST. EVIDENCE OF ACUTE STROKE: NO. Renal Ultrasound 03/15/18 15:26 IMPRESSION: NORMAL RENAL AND BLADDER ULTRASOUND. 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 snf insulin use status Diabetes mellitus complication status : with unspecified complications Qualified Code(s): E11.8 - Type 2 diabetes mellitus with unspecified complications Is this a current diagnosis for this admission?: Yes (4) History of hypertension Is this a current diagnosis for this admission?: Yes (5) Pneumonia Qualifiers: Pneumonia type: due to unspecified organism Laterality: unspecified laterality Lung location: unspecified part of lung Qualified Code(s): J18.9 - Pneumonia, unspecified organism Is this a current diagnosis for this admission?: Yes (6) SIRS (systemic inflammatory response syndrome) Is this a current diagnosis for this admission?: Yes - Notes Notes: Hypotension: Resolved. Blood pressure has been very stable for last several days. Currently seems euvolemic. Sepsis: Resolved. Cause unknown organism. Blood cultures so far been negative. Continue antibiotic therapy. May need to finish the course. Diabetes: Recommend good control of blood sugar but avoid any hyper or hypoglycemia. Hypertension: Currently blood pressure is stable. Continue to monitor it closely. May need to resume antihypertensives. This can be done as an outpatient Pneumonia: Currently stable. Continue antibiotic therapy. May need to finish the course Patient. Systemic inflammatory response syndrome: Currently much improved. Patient maintaining good vitals. Patient is noted to have mild peripheral edema. - Time Time with patient: 15-25 minutes - More than 50% of the time spent coordinating care, discussing management plans with involved caregivers. Management plans discussed with involved personnels. Medical decision making was of moderate to high complexity, patient's has multiple comorbidities. Medications reviewed and adjusted accordingly: Yes
== END 2018-03-18 19:03 | disposition home or self-care (01) | DRG 871 ==
LOC: ER 14:04 → EH 16:02 → 3N 23:11
PROVIDERS: ADMIT Internal Medicine; ATTEND Internal Medicine
PROC: 5A09457 Assistance with Respiratory Ventilation, 24-96 Consecutive Hours, Continuous Positive Airway Pressure (ICD-10-PCS; principal; 2018-03-15)
PROC: 3E0F73Z Introduction of Anti-inflammatory into Respiratory Tract, Via Natural or Artificial Opening (ICD-10-PCS; 2018-03-15)
DX: A41.9 Sepsis, unspecified organism (principal); J18.9 Pneumonia, unspecified organism; E11.9 Type 2 diabetes mellitus without complications; I10 Essential (primary) hypertension; I95.9 Hypotension, unspecified; D69.6 Thrombocytopenia, unspecified; R09.02 Hypoxemia; M19.90 Unspecified osteoarthritis, unspecified site; R00.0 Tachycardia, unspecified; K58.9 Irritable bowel syndrome, unspecified; R65.20 Severe sepsis without septic shock; Z90.49 Acquired absence of other specified parts of digestive tract; Z90.710 Acquired absence of both cervix and uterus; Z88.3 Allergy status to other anti-infective agents; Z91.048 Other nonmedicinal substance allergy status
CPT/HCPCS: 36415; 51702; 70450; 71275; 76770; 80048; 80053; 80307; 81001; 82533; 82550; 82553; 82803; 82962; 83605; 83930; 83935; 84439; 84443; 84484; 85025; 85027; 86022; 86480; 87040; 93005; 93010; 93306; 94640; 94660; 99291; 99292; J0696; J1650; J1815; J1885; J2405; J2543; J3490; J7030; J7120; J7620